=== PATIENT | female | born 1935 | race Caucasian/White ===

== ENCOUNTER 2017-04-02 08:15 | Day surgery (SDC) | payer OTHER, MEDICAID ==
[2017-04-02] MEDS ORDERED: D5 LR 1000 ML 1,000 ML IV ONE (08:18)
[2017-04-02] MEDS ORDERED: DIPRIVAN VIAL 20 ML ONE (09:22)
[2017-04-02 14:00] VITALS: BP 138/61
== END 2017-04-02 10:05 | disposition home or self-care (01) ==
LOC: SURG1 08:15
PROVIDERS: ATTEND Internal Medicine Gastroenterology
PROC: 0DB68ZX Excision of Stomach, Via Natural or Artificial Opening Endoscopic, Diagnostic (ICD-10-PCS; principal; 2017-04-02 16:15)
PROC: 0DJ08ZZ Inspection of Upper Intestinal Tract, Via Natural or Artificial Opening Endoscopic (ICD-10-PCS; principal; 2017-04-02 16:15)
DX: K25.9 Gastric ulcer, unspecified as acute or chronic, without hemorrhage or perforation (principal); R10.13 Epigastric pain; K21.9 Gastro-esophageal reflux disease without esophagitis; K29.60 Other gastritis without bleeding; K44.9 Diaphragmatic hernia without obstruction or gangrene; K20.8 Other esophagitis
CPT/HCPCS: 99100; A4217; J3490; J7120

== ENCOUNTER → 2018-02-12 | Outpatient (CLI) | payer OTHER, MEDICAID ==
[~2018-02-12] MED LIST: NS 100 ML IV 100 ML IV ONE
== END | disposition home or self-care (01) ==
LOC: RAD 11:53
PROVIDERS: ATTEND Internal Medicine
DX: T14.8XXA Other injury of unspecified body region, initial encounter (principal); X58.XXXA Exposure to other specified factors, initial encounter
CPT/HCPCS: A4222

== ENCOUNTER → 2018-02-18 | Outpatient (CLI) | payer OTHER, MEDICAID ==
--- NOTE | 2018-02-18 13:28 | CT ---
Indication: Right lower leg wound infection Exam: CTA aorta and lower extremities with the without contrast. Technique: Axial spiral images were obtained from the lung bases through the feet before and after ad ministration of 100 cc Omnipaque 300. Coronal and sagittal 3D MIP reconstructions were performed of t he aorta and runoff vessels in the lower extremities. Findings: The visualized liver and spleen are grossly unremarkable . The gallbladder as been removed. The commo n duct is mildly dilated proximally and tapers distally with no filling defects. The pancreas and adr enals are normal. The kidneys are normal size and function normally with no hydronephrosis or renal s tones. The uterus has been removed with no adnexal mass or free fluid. The bladder is unremarkable. N o retroperitoneal mass or adenopathy is seen. There is mild to moderate calcified plaque along the abdominal aorta and extending inferiorly with no aneurysm or dissection. There is moderate plaque along the origin of the celiac artery causing moder ate narrowing of the origin in the range of 50-70% with good flow distally . The superior mesenteric artery is well opacified and normal caliber. The left renal artery are well opacified and normal [facility] sher[facility]. There is moderate plaque along the origin of the right renal artery causing 50-70% narrowing wit h good flow distally . There is moderate calcified plaque extending throughout the infrarenal aorta t o the bifurcation with both common iliac, external iliac, and common femoral arteries widely patent a nd normal caliber with no plaque identified. Both profunda and superficial femoral arteries are widely patent with no plaque or narrowing identifi ed. Both popliteal arteries are widely patent and normal caliber with no plaque identified. There is a normal trifurcation bilaterally both the anterior and posterior tibial arteries patent and normal c aliber into the distal foot bilaterally. There is mild attenuation of the peroneal arteries around th e ankle bilaterally. There are postop changes are seen along the medial malleolus on the right . Ther e are old healed fracture of the left pubic ramus and inferior pubic ramus on the left. Impression: [id number] atherosclerotic calcified plaque throughout the aorta with no aneurysm or dissection . Moderate calcified plaque along the origin of the celiac and right renal artery which appears to be c ausing narrowing in the range of 50-70% along the origin of both vessels. Unremarkable common iliac, external iliac, common femoral, superficial femoral, and popliteal arterie s with no plaque or narrowing seen . Unremarkable trifurcation vessels with widely patent anterior and posterior tibial arteries bilateral ly into the distal foot with mild attenuation of the peroneal arteries at the level of the ankle. Status post cholecystectomy and hysterectomy. Old fractures of the left pelvis and postop changes in the right ankle. Reported By:
== END ==
LOC: RAD 09:47
PROVIDERS: ATTEND Internal Medicine
DX: T14.8XXA Other injury of unspecified body region, initial encounter (principal); X58.XXXA Exposure to other specified factors, initial encounter
CPT/HCPCS: 73706; A4222

== ENCOUNTER 2018-07-08 11:14 | Observation (INO) ==
[2018-07-08 11:25] VITALS: BMI 24.3
[2018-07-08] MEDS ORDERED: BENTYL CAP 10 MG PO ONE (11:44)
--- NOTE | 2018-07-08 11:47 | DR.CA ---
HPI Time Seen Time seen: 11:10 PCP Primary Care Physician: JOSE A HPI Comment HPI Comment: CHEST COMPRESSIONS IN PROGRESS AND OXYGEN APPLIED ON THE WAS TO ED. PATIENT IS NOW RESPONSIVE IN ED BUT SLOW IN HER RESPONSE TO QUESTIONS. SHE IS BRADYCARDIAC. HAVE RECENT VISUAL PROBLEM AND IS ON TIMILOL AND OTHER EYE DROP. DENIES FEVER OR DYSURIA. DENIES CHEST PAIN. Complaint Chief Complaint Doctor Comments: UNRESPONSIVE WHILE IN [employer] [place] AT THE [facility]. THERE WAS NO PULSE AND BREATHING WAS AGONAL. Chief Complaint:: [facility] STAFF BRINGS PT. TO ER STATING PT. WAS UNRESPONSIVE WITH NO PULSE WITH AGONAL RESPIRATIONS. PT. WAS IN THE [employer] AT THE DETENTION AND SLUMPED OVER IN THE CHAIR. UPON ARRIVAL TO ER, PT. IS LETHARGIC BUT RESPONDS VERBALLY TO STAFF, NO RECOLLECTION OF PRIOR EVENTS. Reviewed Nurses Notes Review: Yes Source History Provided: Intermediate Mode of arrival Mode of Arrival: Stretcher Timing Onset of Chief Complaint: 07/08/18 Context Onset: At Rest History R/T Cardiac Arrest: Unknown Prehospital Care: Initial Rhythm: Sinus Bradycardia Prehospital: Treatment: CPR Prehospital: Response to Treatment: Sustained Return of Pulse Associated Signs and Symptoms Associated Signs and Symptoms: Other (BRADYCARDIA.) PMH PMH Past Medical History: Yes Past Medical History: Alzheimers, Anemia, Arthritis, CHF, Dementia, Depression, GERD and Hypertension Past Surgical History: Yes Surgical History: Cholecystectomy and Hysterectomy Family History History of Family Medical Conditions: No Social History Does patient currently use any type of tobacco product: No Have you used tobacco products in the last 12 months: No Type of Tobacco Use: None Does any household member use tobacco: No Alcohol Use: None Do you use any recreational Drugs:: No Lives Where: Intermediate infectious screening In the last 2 months have you had wt loss of >10#?: NO Have you had fever, night sweats or hemotysis?: No Have you traveled outside the country in the last 6 months?: No Isolation: Standard ROS Review of Systems Constitutional: Weakness and Fatigue; negative Chills and Fever Eyes: Discharge and Other (DECREASE VISSION BOTH EYES DUE TO GLAUCOMA.) ENTM: No Symptoms Reported Respiratoy: Short of Breath Cardiovascular: No Symptoms Reported Genitourinary: No Symptoms Reported Neurological: Weakness Musculoskeletal: No Symptoms Reported Integumentary: No Symptoms Reported Hematologic/Lymphatic: Easy Bleeding and Easy Bruising Endocrine: No Symptoms Reported Psychiatric: No Symptoms Reported All Other Systems: Reviewed and Negative PE Vitals Vital Signs: Temp Pulse Pulse Resp BP BP BP 07/09/18 18:00 65 19 186/80 07/09/18 17:00 71 14 121/57 07/09/18 16:00 97.8 F 66 17 112/56 07/09/18 15:00 62 16 111/58 07/09/18 14:00 65 14 108/55 07/09/18 13:00 65 14 157/74 07/09/18 12:00 98.2 F 61 15 153/70 07/09/18 11:00 57 L 12 157/70 07/09/18 10:00 54 L 15 153/70 07/09/18 09:00 57 L 12 146/66 07/09/18 08:00 60 11 L 122/58 07/09/18 07:00 97.3 F L 72 18 162/67 07/09/18 06:00 63 12 153/67 07/09/18 05:00 67 13 07/09/18 04:00 98.9 F 60 14 171/71 07/09/18 03:00 60 23 167/72 07/09/18 02:00 59 L 20 164/72 07/09/18 01:00 59 L 16 170/71 07/09/18 00:00 58 L 15 152/67 07/08/18 23:00 58 L 16 175/78 07/08/18 22:00 64 20 144/66 07/08/18 21:00 48 L 20 151/66 07/08/18 20:00 50 L 20 124/60 07/08/18 19:00 97.7 F 57 L 23 144/61 07/08/18 18:00 57 L 22 173/71 07/08/18 17:00 50 L 30 H 139/62 07/08/18 16:00 53 L 27 H 172/73 07/08/18 15:00 98.5 F 52 L 18 148/63 07/08/18 14:30 52 L 22 148/59 07/08/18 14:14 52 L 18 154/67 07/08/18 14:00 53 L 22 155/64 07/08/18 13:30 53 L 23 125/63 07/08/18 13:00 55 L 20 143/59 07/08/18 12:30 50 L 21 135/62 07/08/18 12:15 46 L 22 135/61 07/08/18 12:00 46 L 22 136/59 07/08/18 11:45 46 L 23 134/60 07/08/18 11:30 49 L 20 131/60 07/08/18 11:19 97 F L 46 L 15 118/56 04/02/17 10:00 138/61 09/18/14 21:40 149/69 07/01/14 16:00 119/58 Pulse Ox 07/09/18 18:00 100 07/09/18 17:00 99 07/09/18 16:00 99 07/09/18 15:00 95 07/09/18 14:00 96 07/09/18 13:00 100 07/09/18 12:00 100 07/09/18 11:00 100 07/09/18 10:00 100 07/09/18 09:00 100 07/09/18 08:00 99 07/09/18 07:00 98 07/09/18 06:00 98 07/09/18 05:00 100 07/09/18 04:00 99 07/09/18 03:00 100 07/09/18 02:00 100 07/09/18 01:00 99 07/09/18 00:00 99 07/08/18 23:00 100 07/08/18 22:00 100 07/08/18 21:00 100 07/08/18 20:00 100 07/08/18 19:00 100 07/08/18 18:00 100 07/08/18 17:00 100 07/08/18 16:00 99 07/08/18 15:00 100 07/08/18 14:30 95 07/08/18 14:14 100 07/08/18 14:00 100 07/08/18 13:30 96 07/08/18 13:00 100 07/08/18 12:30 100 07/08/18 12:15 100 07/08/18 12:00 100 07/08/18 11:45 100 07/08/18 11:30 97 07/08/18 11:19 100 04/02/17 10:00 09/18/14 21:40 07/01/14 16:00 General Limitations: Altered Mental Status General Appearance: Alert and In Distress Head Head Exam: Normal Inspection and Atraumatic Eyes Eye exam: PERRL and EOMI; negative Scleral Icterus ENT ENT Exam: Normal Oropharynx, Normal External Ear Exam and TM's Normal Bilaterally Airway Airway: Patent Gag: Normal Neck Neck Exam: Normal Inspection and Trachea Midline; negative Tenderness, Meningismus and Lymphadenopathy Chest Chest Inspection: Normal Inspection and Symmetric Chest Wall Rise Expanded Chest Exam: Other (NONE OF THE ABOVE.) Respiratory Ventilation: Spontaneous Respiratory Exam: Normal Lung Sounds Bilat Respiratory Exam: Bilateral: Rhonchi and Lower: Rhonchi Cardiovascular Cardiovascular Exam: Bradycardia Abdominal Exam Abdominal Exam: Normal Inspection, Normal Bowel Sounds and Soft; negative Tenderness Extremities Extremities Exam: Normal Inspection Back Back Exam: Normal Inspection Psychiatric Psychiatric Exam: Normal Affect and Anxious Skin Skin Exam: Intact MDM Addition Information Additional Information Obtained From: Family Differential Diagnosis Differential Diagnosis: Cardiopulmonary Arrest, Dysrhythmia, Electrolyte Disorder, Myocardial Infarction, Pneumothorax, Pulmonary Embolus and Respiratory Failure ROR Labs Reviewed Laboratory Results Reviewed?: Yes Result Diagrams: 07/09/18 04:10 07/09/18 04:10 Laboratory: WBC 4.6 X10^3/uL (3.6-10.0) 07/09/18 04:10 RBC 4.51 X10^6/uL (3.5-5.4) 07/09/18 04:10 Hgb 13.7 g/dL (12.0-16.0) 07/09/18 04:10 Hct 40.4 % (36.0-47.0) 07/09/18 04:10 MCV 89.6 fL (80.0-100.0) 07/09/18 04:10 MCH 30.5 pg (27.0-34.0) 07/09/18 04:10 MCHC 34.0 g/dL (33.0-35.0) 07/09/18 04:10 RDW 12.9 % (11.6-16.5) 07/09/18 04:10 Plt Count 157 X10^3/uL (150.0-450.0) 07/09/18 04:10 MPV 8.9 fL (7.4-11.0) 07/09/18 04:10 Neut % (Auto) 59.2 % (42.0-75.0) 07/09/18 04:10 Lymph % (Auto) 25.6 % (21.0-51.0) 07/09/18 04:10 [place] % (Auto) 11.0 % (0.0-13.0) 07/09/18 04:10 Eos % (Auto) 3.4 % (0.9-2.9) H 07/09/18 04:10 Baso % (Auto) 0.8 % (0.2-1.0) 07/09/18 04:10 Neut # (Auto) 2.7 x10^3/uL (2.2-4.8) 07/09/18 04:10 Lymph # (Auto) 1.2 X10^3/uL (1.3-2.9) L 07/09/18 04:10 [place] # (Auto) 0.5 x10^3/uL (0.3-0.8) 07/09/18 04:10 Eos # (Auto) 0.2 x10^3/uL (0.0-0.2) 07/09/18 04:10 Baso # (Auto) 0.0 X10^3/uL (0.0-0.1) 07/09/18 04:10 Absolute Nucleated RBC 0.2 /100WBC 07/09/18 04:10 Sodium 143 mmol/L (136-145) 07/09/18 04:10 Corrected Sodium TNP 07/09/18 04:10 Potassium 4.2 mmol/L (3.5-5.1) 07/09/18 04:10 Chloride 110 mmol/L (98-107) H 07/09/18 04:10 Carbon Dioxide 25.1 mmol/L (21-32) 07/09/18 04:10 BUN 17 mg/dL (7-18) 07/09/18 04:10 Creatinine 1.06 mg/dL (0.55-1.02) H 07/09/18 04:10 Est GFR (MDRD) Af Amer > 60 (>60) 07/09/18 04:10 Est GFR (MDRD) Non-Af 53 (>60) L 07/09/18 04:10 Glucose 91 mg/dL (65-99) 07/09/18 04:10 POC Glucose (mg/dL) 89 mg/dL (65-99) 07/08/18 11:14 Calcium 9.6 mg/dL (8.5-10.1) 07/09/18 04:10 Corrected Calcium 10.2 mg/dL (8.5-10.1) H 07/09/18 04:10 Magnesium 2.0 mg/dL (1.7-2.9) 07/09/18 04:10 Total Bilirubin 0.30 mg/dL (0.2-1.0) 07/09/18 04:10 AST 17 Units/L (15-37) 07/09/18 04:10 ALT 23 Units/L (12-78) 07/09/18 04:10 Alkaline Phosphatase 84 Units/L (46-116) 07/09/18 04:10 Creatine Kinase 42 Units/L (26-192) 07/09/18 00:30 CK-MB (CK-2) 1.0 ng/mL (0-4.0) 07/09/18 00:30 CK/CKMB % Calc 2.4 % (<4) 07/09/18 00:30 Troponin I < 0.02 ng/mL (0-1.5) 07/09/18 00:30 Total Protein 7.0 g/dL (6.4-8.2) 07/09/18 04:10 Albumin 3.3 g/dL (3.4-5.0) L 07/09/18 04:10 Globulin 3.7 g/dL (2.5-4.5) 07/09/18 04:10 Albumin/Globulin Ratio 0.9 Ratio (1.1-2.1) L 07/09/18 04:10 Acetone, Semi-Quant Negative (NEGATIVE) 07/09/18 04:10 XRAY XRAY Interpreted by: Radiologist XRAY Findings: REPORT DISCUSS WITH PATIENT. EKG [place]: Normal Rhythm: SB Diagnosis Discharge Problem: Episode of syncope, Bradycardia, Glaucoma
[2018-07-08 12:07] LABS: BASOPHILS % (AUTO) 1.1 % (0.2-1.0); EOSINOPHILS # (AUTO) 0.2 x10^3/uL (0.0-0.2); EOSINOPHILS % (AUTO) 4.4 % (0.9-2.9); HEMATOCRIT 38.3 % (36.0-47.0); HEMOGLOBIN 12.7 g/dL (12.0-16.0); LYMPHOCYTES # (AUTO) 1.1 X10^3/uL (1.3-2.9); LYMPHOCYTES % (AUTO) 25.5 % (21.0-51.0); MEAN CORPUSCULAR HEMOGLOBIN 30.4 pg (27.0-34.0); MEAN CORPUSCULAR HGB CONC 33.2 g/dL (33.0-35.0); MEAN CORPUSCULAR VOLUME 91.7 fL (80.0-100.0); MONOCYTES # (AUTO) 0.4 x10^3/uL (0.3-0.8); MONOCYTES % (AUTO) 9.3 % (0.0-13.0); NEUTROPHILS # (AUTO) 2.6 x10^3/uL (2.2-4.8); NEUTROPHILS % (AUTO) 59.7 % (42.0-75.0); PLATELET COUNT 155 X10^3/uL (150.0-450.0); RED BLOOD COUNT 4.17 X10^6/uL (3.5-5.4); RED CELL DISTRIBUTION WIDTH 13.2 % (11.6-16.5); WHITE BLOOD COUNT 4.3 X10^3/uL (3.6-10.0)
[2018-07-08 12:24] LABS: BLOOD UREA NITROGEN 21 mg/dL (7-18); CALCIUM 9.5 mg/dL (8.5-10.1); CARBON DIOXIDE 28.5 mmol/L (21-32); CHLORIDE 107 mmol/L (98-107); CREATININE 1.33 mg/dL (0.55-1.02); SODIUM 140 mmol/L (136-145); TROPONIN I < 0.02 ng/mL (0-1.5); eGFR NON BLACK RACES 40 (>60)
[2018-07-08 12:28] LABS: ALANINE AMINOTRANSFERASE 26 Units/L (12-78); ALBUMIN 3.5 g/dL (3.4-5.0); ALKALINE PHOSPHATASE 77 Units/L (46-116); ASPARTATE AMINO TRANSFERASE 19 Units/L (15-37); CKMB % 2.2 % (<4); CREATINE KINASE 46 Units/L (26-192)
--- NOTE | 2018-07-08 13:25 | RAD ---
Chest, one view Indication: Shortness of breath Comparison: 12/26/2015 Findings: The heart is stable in size. No focal infiltrate, significant effusion or pneumothorax is i dentified. Moderate-sized hiatal hernia again noted. The imaged osseous structures are unchanged. Impression: No acute cardiopulmonary abnormality or significant interval change. Reported By:
[2018-07-08] MEDS: NS 1000 ML 1,000 ML IV SCH (15:01)
[2018-07-08 19:23] LABS: CKMB % 2.1 % (<4); CREATINE KINASE 52 Units/L (26-192); CREATINE KINASE MB 1.1 ng/mL (0-4.0); TROPONIN I < 0.02 ng/mL (0-1.5)
[2018-07-08] MEDS: MILK OF MAGNESIA PO SCH (20:23)
[2018-07-08] MEDS ORDERED: COLACE CAP 100 MG PO SCH (21:00)
[2018-07-09 01:28] LABS: CKMB % 2.4 % (<4); CREATINE KINASE 42 Units/L (26-192); TROPONIN I < 0.02 ng/mL (0-1.5)
[2018-07-09 04:54] LABS: BASOPHILS % (AUTO) 0.8 % (0.2-1.0); EOSINOPHILS # (AUTO) 0.2 x10^3/uL (0.0-0.2); EOSINOPHILS % (AUTO) 3.4 % (0.9-2.9); HEMATOCRIT 40.4 % (36.0-47.0); HEMOGLOBIN 13.7 g/dL (12.0-16.0); LYMPHOCYTES # (AUTO) 1.2 X10^3/uL (1.3-2.9); LYMPHOCYTES % (AUTO) 25.6 % (21.0-51.0); MEAN CORPUSCULAR HEMOGLOBIN 30.5 pg (27.0-34.0); MEAN CORPUSCULAR VOLUME 89.6 fL (80.0-100.0); MEAN PLATELET VOLUME 8.9 fL (7.4-11.0); MONOCYTES # (AUTO) 0.5 x10^3/uL (0.3-0.8); NEUTROPHILS # (AUTO) 2.7 x10^3/uL (2.2-4.8); NEUTROPHILS % (AUTO) 59.2 % (42.0-75.0); PLATELET COUNT 157 X10^3/uL (150.0-450.0); RED BLOOD COUNT 4.51 X10^6/uL (3.5-5.4); RED CELL DISTRIBUTION WIDTH 12.9 % (11.6-16.5); WHITE BLOOD COUNT 4.6 X10^3/uL (3.6-10.0)
[2018-07-09 05:06] LABS: ALANINE AMINOTRANSFERASE 23 Units/L (12-78); ALBUMIN 3.3 g/dL (3.4-5.0); ALKALINE PHOSPHATASE 84 Units/L (46-116); ASPARTATE AMINO TRANSFERASE 17 Units/L (15-37); BLOOD UREA NITROGEN 17 mg/dL (7-18); CALCIUM 9.6 mg/dL (8.5-10.1); CARBON DIOXIDE 25.1 mmol/L (21-32); CHLORIDE 110 mmol/L (98-107); COR CA(FOR HYPOALB) 10.2 mg/dL (8.5-10.1); CREATININE 1.06 mg/dL (0.55-1.02); SODIUM 143 mmol/L (136-145); eGFR NON BLACK RACES 53 (>60)
[2018-07-09] MEDS: NS 1000 ML 1,000 ML IV SCH (08:46)
[2018-07-09] MEDS: MILK OF MAGNESIA PO SCH (09:00)
[2018-07-09] MEDS ORDERED: KLONOPIN TAB 0.5 MG PO PRN (09:28)
[2018-07-09] MEDS ORDERED: ULTRAM PO PRN (09:28)
[2018-07-09] MEDS ORDERED: PAXIL PO SCH (10:00)
[2018-07-09] MEDS ORDERED: FLONASE NASAL SPRAY ENOSTRIL SCH (10:00)
[2018-07-09] MEDS: PATIENT'S HOME MEDICATION (Carboxymethylcellulose Sodium [Refresh Tears] 1 DROP) EACHEYE SCH ×3 (10:21→16:52)
[2018-07-09] MEDS: PATIENT'S HOME MEDICATION OP SCH ×2 (10:22→12:59)
[2018-07-09] MEDS ORDERED: TYLENOL 500 MG TAB EXTRA STRENGTH PO SCH (14:00)
[2018-07-09] MEDS ORDERED: ALPHAGAN 0.2% OPHTH SOLN OP SCH (14:00)
--- NOTE | 2018-07-09 14:39 | DR.H&P ---
H&P - History & Physical for Day of: H&P Date: 07/08/18 - Chief Complaint Chief Complaint: syncope, unresponsive - History of Present Illness History of Present Illness: 83 WF ER ADMISSION AFTER PRESENTING TO THE ER FROM [facility] UNRESPONSIVE. NURSING STAFF REPORTS PT WAS IN [employer] CHAIR AND SLUMPED OVER, TURNED BLUE IN FACE AND WAS UNRESPONSIVE. PT WAS NOTED TO BE BRADYCARDIC ON ARRIVAL TO ER. PT HAS NO HX OF HEART DISEASE. PT WAS STARTED ON DORZOLAMIDE TIMOLOL EYE DROPS ON 911 FOR GLAUCOMA. PT'S FAMILY [facility] OPTHALMOLOGIST DR NEGRETE CAUTIONED PT DROPS MAY CAUSE WEAKNESS, DIZZINESS, DROP IN BP AND HEART RATE. PT STABLILIZED IN ER AND ADMITTED TO ICU FOR CARDIAC MONITORING, R/O AMI - Past Medical History Past Medical History: Hypertension, Alzheimers, Dementia, Depression, Anemia, GERD, Arthritis, CHF Additional Medical History: Osteoporosis, LBP, GLAUCOMA - Past Surgical History Surgical History: Cholecystectomy, Hysterectomy Additional Surgical History: ORIF (R) Ankle - Social History Does patient currently use any type of tobacco product: No Have you used tobacco products in the last 12 months: No Type of Tobacco Use: None Does any household member use tobacco: No Alcohol Use: None Drug Use: None - Medications Home Medications: ciprofloxacin Allergy (Verified 07/08/18 11:26) codeine Allergy (Verified 07/08/18 11:26) Penicillins Allergy (Verified 07/08/18 11:26) CONTINUE taking the following medications acetaminophen [Tylenol Extra Strength] 1 tab PO TID 07/08/18 [History] acetazolamide 1 tab PO QID 07/08/18 [History] brimonidine 1 drp OPHTHALMIC (EYE) TID 07/08/18 [History] calcium carbonate-vitamin D3 [Calcium 500 With D] 1 tab PO BID 07/08/18 [History ] cetirizine 1 tab PO DAILY 07/08/18 [History] diclofenac sodium [Voltaren] 1 applic TOPICAL QID 07/08/18 [History] divalproex [Depakote ER] 1 tab PO HS 07/08/18 [History] docusate sodium [Colace] 1 cap PO DAILY 07/08/18 [History] dorzolamide-timolol 1 drp OPHTHALMIC (EYE) TID 07/08/18 [History] latanoprost 1 drp OPHTHALMIC (EYE) HS 07/08/18 [History] magnesium hydroxide [Milk of Magnesia] 30 ml PO HS 07/08/18 [History] meclizine 1 tab PO Q6HR PRN 07/08/18 [History] menthol [Cough Drops] 1 tab PO Q4HR PRN 07/08/18 [History] montelukast [Singulair] 1 tab PO DAILY 07/08/18 [History] paroxetine HCl [Paxil] 1 tab PO DAILY 07/08/18 [History] polyethylene glycol 3350 [Miralax] 17 g/day PO DAILY 07/08/18 [History] potassium chloride 1 cap PO DAILY 07/08/18 [History] simethicone 2 tab PO QID 07/08/18 [History] tramadol 1 tab PO Q4HR PRN 07/08/18 [History] - Review of Systems Constitutional: Other (LETHARGIC ON ARRIVAL TO ER) Eyes: Vision Change (CHRONIC RELATED TO GLAUCOMA WORSENING) ENT: No Symptoms Reported Respiratory: No Symptoms Reported Cardiovascular: No Symptoms Reported Gastrointestinal: No Symptoms Reported Genitourinary: No Symptoms Reported Musculoskeletal: No Symptoms Reported Skin: No Symptoms Reported Neurological: Weakness - Physical Exam Vital Signs: Temperature 98.2 F Pulse Rate [Apical] 65 Pulse Rate 46 Respiratory Rate 14 Blood Pressure [Right Arm] 108/55 Blood Pressure [Left Arm] 164/72 Blood Pressure 118/56 O2 Sat by Pulse Oximetry 96 Oriented: Person Eyes: Blurred Vision Ear: Normal Nose: Normal Throat: Normal Respiratory: RLL Diminished, LLL Diminished Cardiovascular: Bradycardia. negative: Murmur, Edema : Normal Auscultation: Bowel Sounds: Normal Palpation: Normal Tenderness: Normal Skin: Normal Musculoskeletal: Normal Psychiatric: Normal Speech Pattern: Appropriate, Delayed - Assessment/Plan (1) Episode of syncope Qualifiers: Syncope type: unspecified Qualified Code(s): R55 - Syncope and collapse Status: Acute Plan: ADMIT, ICU CONTINUOUS CARDIAC MONITORING, SUPPLEMENTAL O2. SERIAL CE AND EKG'S. BP MONITORING, VERIFY HOME MEDS. HOLD BB OR CBC, RATE CONTROL MEDICATION. GENTLE IV HYDRATION (2) Bradycardia Status: Acute (3) GERD (gastroesophageal reflux disease) Status: Chronic (4) SKYLA (generalized anxiety disorder) Status: Chronic (5) Depression Status: Chronic (6) Glaucoma Qualifiers: Glaucoma type: unspecified Laterality: bilateral Qualified Code(s): H40.9 - Unspecified glaucoma Status: Acute - Allergies Allergies/Adverse Reactions: Allergies Allergy/AdvReac Type Severity Reaction Status Date / Time ciprofloxacin Allergy Verified 07/08/18 11:26 codeine Allergy Verified 07/08/18 11:26 Penicillins Allergy Verified 07/08/18 11:26
--- NOTE | 2018-07-09 14:49 | PCM.DCPLAN ---
Discharge Summary - Admission Date Date of Admission: 07/08/18 - Discharge Date Discharge Date: 07/09/18 - Admission Diagnoses (1) Episode of syncope Status: Acute (2) Bradycardia Status: Acute (3) GERD (gastroesophageal reflux disease) Status: Chronic (4) SKYLA (generalized anxiety disorder) Status: Chronic (5) Depression Status: Chronic (6) Glaucoma Status: Acute - Discharge Diagnoses Discharge Diagnosis: BRADYCARDIA DUE TO BB, RESOLVED SKYLA GERD OA MDD SKYLA DEMENTIA GLAUCOMA - Discharge Medications Discharge Medications: Home Medication List acetaminophen [Tylenol Extra Strength] 1 tab PO TID 07/08/18 [History] acetazolamide 1 tab PO QID 07/08/18 [History] brimonidine 1 drp OPHTHALMIC (EYE) TID 07/08/18 [History] calcium carbonate-vitamin D3 [Calcium 500 With D] 1 tab PO BID 07/08/18 [History ] cetirizine 1 tab PO DAILY 07/08/18 [History] diclofenac sodium [Voltaren] 1 applic TOPICAL QID 07/08/18 [History] divalproex [Depakote ER] 1 tab PO HS 07/08/18 [History] docusate sodium [Colace] 1 cap PO DAILY 07/08/18 [History] dorzolamide-timolol 1 drp OPHTHALMIC (EYE) TID 07/08/18 [History] latanoprost 1 drp OPHTHALMIC (EYE) HS 07/08/18 [History] magnesium hydroxide [Milk of Magnesia] 30 ml PO HS 07/08/18 [History] meclizine 1 tab PO Q6HR PRN 07/08/18 [History] menthol [Cough Drops] 1 tab PO Q4HR PRN 07/08/18 [History] montelukast [Singulair] 1 tab PO DAILY 07/08/18 [History] paroxetine HCl [Paxil] 1 tab PO DAILY 07/08/18 [History] polyethylene glycol 3350 [Miralax] 17 g/day PO DAILY 07/08/18 [History] potassium chloride 1 cap PO DAILY 07/08/18 [History] simethicone 2 tab PO QID 07/08/18 [History] tramadol 1 tab PO Q4HR PRN 07/08/18 [History] Prescriptions: - Hospital Course Vital Signs: Temperature 98.2 F Pulse Rate [Apical] 65 Pulse Rate 46 Respiratory Rate 14 Blood Pressure [Right Arm] 108/55 Blood Pressure [Left Arm] 164/72 Blood Pressure 118/56 O2 Sat by Pulse Oximetry 96 Latest Lab Results: Laboratory Last Values WBC 4.6 X10^3/uL (3.6-10.0) 07/09/18 04:10 RBC 4.51 X10^6/uL (3.5-5.4) 07/09/18 04:10 Hgb 13.7 g/dL (12.0-16.0) 07/09/18 04:10 Hct 40.4 % (36.0-47.0) 07/09/18 04:10 MCV 89.6 fL (80.0-100.0) 07/09/18 04:10 MCH 30.5 pg (27.0-34.0) 07/09/18 04:10 MCHC 34.0 g/dL (33.0-35.0) 07/09/18 04:10 RDW 12.9 % (11.6-16.5) 07/09/18 04:10 Plt Count 157 X10^3/uL (150.0-450.0) 07/09/18 04:10 MPV 8.9 fL (7.4-11.0) 07/09/18 04:10 Neut % (Auto) 59.2 % (42.0-75.0) 07/09/18 04:10 Lymph % (Auto) 25.6 % (21.0-51.0) 07/09/18 04:10 [place] % (Auto) 11.0 % (0.0-13.0) 07/09/18 04:10 Eos % (Auto) 3.4 % (0.9-2.9) H 07/09/18 04:10 Baso % (Auto) 0.8 % (0.2-1.0) 07/09/18 04:10 Neut # (Auto) 2.7 x10^3/uL (2.2-4.8) 07/09/18 04:10 Lymph # (Auto) 1.2 X10^3/uL (1.3-2.9) L 07/09/18 04:10 [place] # (Auto) 0.5 x10^3/uL (0.3-0.8) 07/09/18 04:10 Eos # (Auto) 0.2 x10^3/uL (0.0-0.2) 07/09/18 04:10 Baso # (Auto) 0.0 X10^3/uL (0.0-0.1) 07/09/18 04:10 Absolute Nucleated RBC 0.2 /100WBC 07/09/18 04:10 Sodium 143 mmol/L (136-145) 07/09/18 04:10 Corrected Sodium TNP 07/09/18 04:10 Potassium 4.2 mmol/L (3.5-5.1) 07/09/18 04:10 Chloride 110 mmol/L (98-107) H 07/09/18 04:10 Carbon Dioxide 25.1 mmol/L (21-32) 07/09/18 04:10 BUN 17 mg/dL (7-18) 07/09/18 04:10 Creatinine 1.06 mg/dL (0.55-1.02) H 07/09/18 04:10 Est GFR (MDRD) Af Amer > 60 (>60) 07/09/18 04:10 Est GFR (MDRD) Non-Af 53 (>60) L 07/09/18 04:10 Glucose 91 mg/dL (65-99) 07/09/18 04:10 POC Glucose (mg/dL) 89 mg/dL (65-99) 07/08/18 11:14 Calcium 9.6 mg/dL (8.5-10.1) 07/09/18 04:10 Corrected Calcium 10.2 mg/dL (8.5-10.1) H 07/09/18 04:10 Magnesium 2.0 mg/dL (1.7-2.9) 07/09/18 04:10 Total Bilirubin 0.30 mg/dL (0.2-1.0) 07/09/18 04:10 AST 17 Units/L (15-37) 07/09/18 04:10 ALT 23 Units/L (12-78) 07/09/18 04:10 Alkaline Phosphatase 84 Units/L (46-116) 07/09/18 04:10 Creatine Kinase 42 Units/L (26-192) 07/09/18 00:30 CK-MB (CK-2) 1.0 ng/mL (0-4.0) 07/09/18 00:30 CK/CKMB % Calc 2.4 % (<4) 07/09/18 00:30 Troponin I < 0.02 ng/mL (0-1.5) 07/09/18 00:30 Total Protein 7.0 g/dL (6.4-8.2) 07/09/18 04:10 Albumin 3.3 g/dL (3.4-5.0) L 07/09/18 04:10 Globulin 3.7 g/dL (2.5-4.5) 07/09/18 04:10 Albumin/Globulin Ratio 0.9 Ratio (1.1-2.1) L 07/09/18 04:10 Acetone, Semi-Quant Negative (NEGATIVE) 07/09/18 04:10 Hospital Course: 83 WF ER ADMISSION AFTER PRESENTING TO THE ER FROM [facility] UNRESPONSIVE. NURSING STAFF REPORTS PT WAS IN [employer] CHAIR AND SLUMPED OVER , TURNED BLUE IN FACE AND WAS UNRESPONSIVE. PT WAS NOTED TO BE BRADYCARDIC ON ARRIVAL TO ER. PT HAS NO HX OF HEART DISEASE. PT WAS STARTED ON DORZOLAMIDE TIMOLOL EYE DROPS ON FOR GLAUCOMA. PT'S FAMILY STATES OPTHALMOLOGIST DR NEGRETE CAUTIONED PT DROPS MAY CAUSE WEAKNESS, DIZZINESS, DROP IN BP AND HEART RATE. PT STABLILIZED IN ER AND ADMITTED TO ICU FOR CARDIAC MONITORING, R/O AMI PT HAD SERIAL CE, NORMAL WITHOUT CONCERN FOR AMI. PT HEART RATE IMPROVED TO 60' S 70'S WHILE HOLDING DORZOLAMDIE TIMOLOL, BB EYE DROPS STARTED ON 07/06 FOR GLAUCOMA MANAGEMENT. PT AWAKE AND ALERT AND ORIENTED THIS AM. DENIES ANY PAIN CP SOB OR DIZZINESS. PT DOES REPORT VISION IMPAIRMENT WHICH HAS WORSENED DUE TO INCREASE PRESSURES FROM GLAUCOMA, SHE IS UNDER THE CARE OF DR MORALEZ AND DR RODRÍGUEZ. PT ATE BREAKFAST WITHOUT NAUSEA AND HAD BEEN AMBULATORY TO RESTROOM WITH ASSISTANCE WITHOUT DISTRESS. PT IS DNR, DISCUSSED OPTIONS FOR AGGRESSIVE CARDIAC EVALUATION, PT'S FAMILY AND PT AGREED TO D/C TO LONG TERM HOLDING EYE DROPS AND MONITORING HEART RATE AND BP. PT TO SEE DR MORALEZ SCHEDULED AND FOLLOW UP WITH DR NARANJO. - Discharge Plan Disposition: XFER SNF Condition: Stable - Follow ups/Referrals Follow ups/Referrals: Williams Naranjo [Primary Care Provider] - 1 WEEK - Instructions Additional Instructions: CONTINUE WITH 24 HR TELEMETRY X 1 DAY HOLD ANTIHISTAMINES DUE TO GLAUCOMA UNTIL ORDERED TO RESTART, MAY CONTINUE NASAL SPRAY SEE DR MORALEZ FOR RECHECK ON GLAUCOMA D/C DORZOLAMIDE EYE DROPS
[2018-07-09] MEDS ORDERED: TIMOPTIC 0.5% EYE DROPS EACHEYE SCH (17:00)
[2018-07-09] MEDS ORDERED: TRUSOPT PLUS (OPHTH) EACHEYE SCH (17:00)
[2018-07-09 19:28] VITALS: BP 186/80
[2018-07-09] MEDS ORDERED: PEPCID TAB 20 MG PO SCH (21:00)
[2018-07-09] MEDS ORDERED: DIAMOX PO SCH (21:00)
[2018-07-09] MEDS ORDERED: [UNRECOGNIZED DRUG - OTHER] PO SCH (21:00)
[2018-07-09] MEDS ORDERED: DEPAKOTE ER PO SCH (21:00)
[2018-07-09] MEDS ORDERED: CALCIUM CARBONATE VITAMIN D3 PO SCH (21:00)
[2018-07-09] MEDS ORDERED: OSCAL+D or CALTRATE+D PO SCH (21:00)
[2018-07-10] MEDS ORDERED: MIRALAX POWDER (255 GRAMS BTL) PO SCH (09:00)
== END 2018-07-09 19:00 ==
LOC: ICU 11:14 → ER 11:14 → ICU 14:39
PROVIDERS: ADMIT Internal Medicine; ATTEND Internal Medicine
DX: R40.4 Transient alteration of awareness; F32.89 Other specified depressive episodes; H40.9 Unspecified glaucoma; R55 Syncope and collapse; R00.1 Bradycardia, unspecified; R94.4 Abnormal results of kidney function studies; R26.89 Other abnormalities of gait and mobility; F41.8 Other specified anxiety disorders
CPT/HCPCS: 36415; 71010; 71045; 80053; 82009; 82550; 82553; 83735; 84484; 85025; 93005; 93010; 96365; 97163; 97166; 99284; A4222; G0378; J7030

== ENCOUNTER 2018-12-27 19:12 | Inpatient (IN) ==
[2018-12-27] MEDS: NS 1000 ML 1,000 ML IV SCH (20:02)
[2018-12-27 20:04] LABS: ABG HCO3 23.8 mmol/L (22-26)
[2018-12-27 20:17] LABS: BILIRUBIN,URINE NEGATIVE (NEGATIVE); BLOOD/HEMOGLOBIN,URINE 1+ (NEGATIVE); GLUCOSE, URINE NEGATIVE (NEGATIVE); KETONES,URINE NEGATIVE (NEGATIVE); LEUKOCYTE ESTERASE ,URINE 1+ (NEGATIVE); NITRITES,URINE NEGATIVE (NEGATIVE); PROTEIN,URINE 3+ (NEGATIVE); UROBILINOGEN,URINE NORMAL (NORMAL)
[2018-12-27 20:21] LABS: BLOOD UREA NITROGEN 49 mg/dL (7-18); CALCIUM 10.9 mg/dL (8.5-10.1); CHLORIDE 110 mmol/L (98-107); COR NA(FOR HYPERGLY) 148 mmol/L (136-145); SODIUM 146 mmol/L (136-145); eGFR NON BLACK RACES 50 (>60)
[2018-12-27 20:29] LABS: APPEARANCE,URINE SLIGHTLY HAZY (CLEAR); COLOR,URINE YELLOW (YELLOW)
--- NOTE | 2018-12-27 20:29 | RAD ---
Chest, one view Indication: Altered mental status Comparison: 07/08/2018 Findings: The heart is stable in size. There are new patchy airspace opacities within the mid right lung and right lung base. The remainder of the lungs are grossly clear. No significant pleural effusion or pneumothorax. Impression: New patchy right-sided airspace disease as above, concerning for pneumonia. Clinical correlation and continued radiographic follow-up to resolution recommended. Reported By:
[2018-12-27 20:30] LABS: AMORPHOUS SEDIMENT,UR 1+ /HPF (NEGATIVE); BACTERIA,URINE 2+ /HPF (NEGATIVE); RBC,URINE 0-2 /HPF (NONE SEEN); SQUAMOUS EPITHELIAL CELL,UR RARE /HPF (NEGATIVE)
[2018-12-27 20:31] LABS: BASOPHILS % (AUTO) 0.4 % (0.2-1.0); HEMOGLOBIN 13.7 g/dL (12.0-16.0); LYMPHOCYTES # (AUTO) 0.4 X10^3/uL (1.3-2.9); LYMPHOCYTES % (AUTO) 3.3 % (21.0-51.0); MEAN CORPUSCULAR HEMOGLOBIN 29.9 pg (27.0-34.0); MEAN CORPUSCULAR HGB CONC 33.4 g/dL (33.0-35.0); MEAN CORPUSCULAR VOLUME 89.5 fL (80.0-100.0); MONOCYTES # (AUTO) 1.3 x10^3/uL (0.3-0.8); MONOCYTES % (AUTO) 10.1 % (0.0-13.0); NEUTROPHILS # (AUTO) 11.4 x10^3/uL (2.2-4.8); NEUTROPHILS % (AUTO) 86.2 % (42.0-75.0); PLATELET COUNT 260 X10^3/uL (150.0-450.0); RED BLOOD COUNT 4.58 X10^6/uL (3.5-5.4); RED CELL DISTRIBUTION WIDTH 13.7 % (11.6-16.5); WHITE BLOOD COUNT 13.3 X10^3/uL (3.6-10.0)
--- NOTE | 2018-12-27 20:45 | DR.AMS ---
HPI Time Seen Time Seen by Provider: 12/27/18 19:37 PCP Primary Care Physician: Complaint Chief Complaint:: TOCC - ANNITA CALLED REPORT STATES, "PATIENT HAS RIGHT SIDED WEAKNESS, ALTERED MENTAL STATUS, AND HAS BEEN INCONTINENT SINCE LUNCH TIME TODAY. PATIENT IS A DNR. " Source History Provided: Longterm Mode of Arrival Mode of Arrival: Stretcher Timing Onset of Chief Complaint: 12/27/18 PMH PMH Past Medical History: Yes Past Medical History: Alzheimers, Anemia, Arthritis, CHF, Dementia, Depression, GERD and Hypertension Past Medical History Comment: BLIND O/S 1 YR AGO Past Surgical History: Yes Surgical History: Cholecystectomy and Hysterectomy Family History History of Family Medical Conditions: No Social History Does patient currently use any type of tobacco product: No Have you used tobacco products in the last 12 months: No Type of Tobacco Use: None Does any household member use tobacco: No Alcohol Use: None Do you use any recreational Drugs:: No Lives With: Other Lives Where: Longterm infectious screening Have you traveled outside the country in the last 6 months?: No Isolation: Standard PE Vitals Vital Signs: Temp Pulse Resp BP BP BP Pulse Ox 12/27/18 19:25 100.4 F H 83 20 137/64 93 L 07/09/18 18:00 186/80 186/80 07/09/18 02:00 164/72 General Limitations: No Limitations, Altered Mental Status and Physical Limitation Head Head Exam: Normal Inspection, Atraumatic and Normocephalic Eyes Eye exam: Mydrasis Pupils: Regular, Round: Bilateral ENT ENT Exam: Normal Exam, Normal Oropharynx and Normal External Ear Exam External Ear Exam: Normal External Inspection TM/Canal Exam: Bilateral: Normal Nose Exam: Normal Nose Exam Mouth Exam: Normal Inspection Throat Exam: Normal Inspection Neck Neck Exam: Normal Inspection and Full ROM Chest Chest Inspection: Normal Inspection and Symmetric Chest Wall Rise Respiratory Respiratory Exam: Normal Lung Sounds Bilat Cardiovascular Cardiovascular Exam: Regular Rate and Normal Rhythm Abdominal Exam Abdominal Exam: Normal Inspection and Soft Abdominal Tenderness: RUQ and RLQ Extremities Extremities Exam: Normal Inspection and Full ROM Back Back Exam: Normal Inspection and Full ROM Skin Skin Exam: Warm, Dry, Intact and Normal Color COURSE Treatment Treatment: NS Consultation Called: 22:30 Consultation Comments: Dr. Rodriguez agreed to admit for further evaluation and treatment ROR Labs Reviewed Laboratory Results Reviewed?: Yes Result Diagrams: 12/27/18 20:25 12/27/18 20:01 Laboratory: WBC 13.3 X10^3/uL (3.6-10.0) H 12/27/18 20: RBC 4.58 X10^6/uL (3.5-5.4) 12/27/18 20:25 Hgb 13.7 g/dL (12.0-16.0) 12/27/18 20: Hct 41.0 % (36.0-47.0) 12/27/18 20: MCV 89.5 fL (80.0-100.0) 12/27/18 20: MCH 29.9 pg (27.0-34.0) 12/27/18 20: MCHC 33.4 g/dL (33.0-35.0) 12/27/18 20: RDW 13.7 % (11.6-16.5) 12/27/18 20: Plt Count 260 X10^3/uL (150.0-450.0) 12/27/18 20: MPV 8.0 fL (7.4-11.0) 12/27/18 20:25 Neut % (Auto) 86.2 % (42.0-75.0) H 12/27/18 20: Lymph % (Auto) 3.3 % (21.0-51.0) L 12/27/18 20:25 [place] % (Auto) 10.1 % (0.0-13.0) 12/27/18 20: Eos % (Auto) 0.0 % (0.9-2.9) L 12/27/18 20: Baso % (Auto) 0.4 % (0.2-1.0) 12/27/18 20:25 Neut # (Auto) 11.4 x10^3/uL (2.2-4.8) H 12/27/18 20:25 Lymph # (Auto) 0.4 X10^3/uL (1.3-2.9) L 12/27/18 20:25 [place] # (Auto) 1.3 x10^3/uL (0.3-0.8) H 12/27/18 20:25 Eos # (Auto) 0.0 x10^3/uL (0.0-0.2) 12/27/18 20:25 Baso # (Auto) 0.0 X10^3/uL (0.0-0.1) 12/27/18 20:25 Absolute Nucleated RBC 0.1 /100WBC 12/27/18 20:25 Sample Site Rb 12/27/18 19:58 ABG pH 7.440 (7.35-7.45) 12/27/18 19:58 ABG pCO2 35.0 mmHg (35.0-45.0) 12/27/18 19:58 ABG pO2 63.0 mmHg (80.0-100.0) L 12/27/18 19:58 ABG HCO3 23.8 mmol/L (22-26) 12/27/18 19:58 ABG O2 Saturation 93.0 % (90-100) 12/27/18 19:58 ABG Base Excess 0.0 mmol/L (-2.0-2.0) 12/27/18 19:58 Doug Test N/a 12/27/18 19:58 A-a Gradient 93.0 mmHg 12/27/18 19:58 FiO2 28.0 12/27/18 19:58 Blood Gas Comments [place] well ae 12/27/18 19:58 Sodium 146 mmol/L (136-145) H 12/27/18 20:01 Corrected Sodium 148 mmol/L (136-145) H 12/27/18 20:01 Potassium 3.5 mmol/L (3.5-5.1) 12/27/18 20:01 Chloride 110 mmol/L (98-107) H 12/27/18 20:01 Carbon Dioxide 23.0 mmol/L (21-32) 12/27/18 20:01 BUN 49 mg/dL (7-18) H 12/27/18 20:01 Creatinine 1.10 mg/dL (0.55-1.02) H 12/27/18 20:01 Est GFR (MDRD) Af Amer > 60 (>60) 12/27/18 20:01 Est GFR (MDRD) Non-Af 50 (>60) L 12/27/18 20:01 Glucose 171 mg/dL (65-99) H 12/27/18 20:01 Calcium 10.9 mg/dL (8.5-10.1) H 12/27/18 20:01 Specimen Type Catherized urine 12/27/18 20:06 Urine Color Yellow (YELLOW) 12/27/18 20:06 Urine Appearance Slightly hazy (CLEAR) 12/27/18 20:06 Urine pH 6.0 (5.0 - 8.0) 12/27/18 20:06 Ur Specific [place] 1.010 (1.000-1.030) 12/27/18 20:06 Urine Protein 3+ (NEGATIVE) 12/27/18 20:06 Urine Glucose (UA) Negative (NEGATIVE) 12/27/18 20:06 Urine Ketones Negative (NEGATIVE) 12/27/18 20:06 Urine Occult Blood 1+ (NEGATIVE) 12/27/18 20:06 Urine Nitrite Negative (NEGATIVE) 12/27/18 20:06 Urine Bilirubin Negative (NEGATIVE) 12/27/18 20:06 Urine Urobilinogen Normal (NORMAL) 12/27/18 20:06 Ur Leukocyte Esterase 1+ (NEGATIVE) 12/27/18 20:06 Urine RBC 0-2 /HPF (NONE SEEN) 12/27/18 20:06 Urine WBC 0-2 /HPF (NONE SEEN) 12/27/18 20:06 Ur Squamous Epith Cells Rare /HPF (NEGATIVE) 12/27/18 20:06 Amorphous Sediment 1+ /HPF (NEGATIVE) 12/27/18 20:06 Urine Bacteria 2+ /HPF (NEGATIVE) 12/27/18 20:06 Ur Culture Indicated? No/not indicated 12/27/18 20:06 Other Results Comments: In comparison to prior examination dated 11/02/18, paranasal sinus disease has developed with air fluid levels in the maxillary and sphenoid sinuses and central high attenuation material raising the question of fungal infection, ENT consultation may be beneficial. Brain parenchymal appearances are similar without evidence of mass, hydrocephalus or recent ischemic change. Impression: Significant paranasal sinus disease with air fluid levels in the maxillary and sphenoid sinuses and dense opacification within the ethmoid sinuses extending into the frontal sinuses with central high attenuation raising the question of fungal disease, ENT consultation may be beneficial. No acute intraparenchymal abnormality idientifed. If symptoms persist and MRI would change clinical management, it may be pursued. Chest: The heart is stable in size. There are new patchy airspace opacities within the mid right lung and ri ght lung base. The remainder of the lungs are grossly clear. No significant pleural effusion or pneumothorax. Impression: New patchy right sided airspace disease as above, concerning for pneumonia. Clinical correlation and continued radiographic follow-up to resolution is recommended. XRAY XRAY Interpreted by: Radiologist Procedures Procedure Comments Procedures: See orders
--- NOTE | 2018-12-27 21:11 | CT ---
HISTORY: Altered mental status Technique: Multiple axial images of the brain were obtained from the skull base to the vertex without administration of IV contrast. Findings: In comparison to prior examination dated 11/02/2018, paranasal sinus disease has developed with air-fluid levels in the maxillary and sphenoid sinuses and central high attenuation material raising the question of fungal infection. ENT consultation may be beneficial. Brain parenchymal appearances are similar without evidence of mass, hydrocephalus or recent ischemic change. IMPRESSION: Significant paranasal sinus disease with air-fluid levels in the maxillary and sphenoid sinuses and dense opacification within the ethmoid sinuses extending into the frontal sinuses with central high attenuation raising the question of fungal disease. ENT consultation may be beneficial. No acute intraparenchymal abnormality identified. If symptoms persist and MRI would change clinical management, it may be pursued. Reported By:
[2018-12-27] MEDS ORDERED: TYGACIL 50 MG VIAL 100 MG in NS 100 ML IV 100 ML IV ONE (22:44)
[2018-12-27] MEDS ORDERED: SALINE 3% 15 ML NEB TX ONE (22:56)
[2018-12-27] MEDS ORDERED: SALINE 3% 15 ML NEB TX NEB ONE (23:00)
[2018-12-27] MEDS ORDERED: NS 1000 ML 1,000 ML IV SCH (23:00)
[2018-12-27] MEDS ORDERED: NS 1/2 1000 ML IV 1,000 ML IV SCH (23:00)
[2018-12-28] MEDS: NS 1000 ML 1,000 ML IV SCH (03:41)
[2018-12-28] MEDS ORDERED: TYGACIL 50 MG VIAL IV ONE (05:09)
[2018-12-28] MEDS ORDERED: NS 100 ML IV 100 ML IV ONE (05:09)
[2018-12-28 05:49] LABS: BASOPHILS # (AUTO) 0.1 X10^3/uL (0.0-0.1); BASOPHILS % (AUTO) 0.5 % (0.2-1.0); HEMATOCRIT 40.6 % (36.0-47.0); HEMOGLOBIN 13.4 g/dL (12.0-16.0); LYMPHOCYTES # (AUTO) 0.5 X10^3/uL (1.3-2.9); LYMPHOCYTES % (AUTO) 4.2 % (21.0-51.0); MEAN CORPUSCULAR HEMOGLOBIN 30.2 pg (27.0-34.0); MEAN CORPUSCULAR VOLUME 91.3 fL (80.0-100.0); MEAN PLATELET VOLUME 8.1 fL (7.4-11.0); MONOCYTES # (AUTO) 1.4 x10^3/uL (0.3-0.8); MONOCYTES % (AUTO) 11.2 % (0.0-13.0); NEUTROPHILS # (AUTO) 10.6 x10^3/uL (2.2-4.8); NEUTROPHILS % (AUTO) 84.1 % (42.0-75.0); PLATELET COUNT 253 X10^3/uL (150.0-450.0); RED BLOOD COUNT 4.45 X10^6/uL (3.5-5.4); RED CELL DISTRIBUTION WIDTH 13.7 % (11.6-16.5); WHITE BLOOD COUNT 12.6 X10^3/uL (3.6-10.0)
[2018-12-28] MEDS ORDERED: NS 1/2 1000 ML IV 1,000 ML IV ONE (05:49)
[2018-12-28 06:01] LABS: ALANINE AMINOTRANSFERASE 40 Units/L (12-78); ALBUMIN 2.5 g/dL (3.4-5.0); ALKALINE PHOSPHATASE 229 Units/L (46-116); ASPARTATE AMINO TRANSFERASE 21 Units/L (15-37); BLOOD UREA NITROGEN 39 mg/dL (7-18); CALCIUM 10.4 mg/dL (8.5-10.1); CARBON DIOXIDE 24.9 mmol/L (21-32); COR CA(FOR HYPOALB) 11.6 mg/dL (8.5-10.1); COR NA(FOR HYPERGLY) 152 mmol/L (136-145); CREATININE 0.99 mg/dL (0.55-1.02); TOTAL PROTEIN 7.3 g/dL (6.4-8.2); eGFR NON BLACK RACES 57 (>60)
[2018-12-28 06:04] LABS: CHLORIDE 114 mmol/L (98-107)
[2018-12-28 06:06] LABS: SODIUM 151 mmol/L (136-145)
[2018-12-28 06:27] VITALS: BMI 20.8
--- NOTE | 2018-12-28 06:46 | RAD ---
HISTORY: Follow-up pneumonia Study: Chest AP portable Comparison: 12/27/2018 Findings: The heart is within normal limits in size. The yayo are within normal limits. The lungs are well inflated. Infiltrate is present in the right upper lobe concerning for pneumonia. It is not significantly changed from the prior examination. There are some interstitial lung changes in the lung bases bilaterally. No pleural effusions are identified. The bony thorax is unremarkable. There is a hiatal hernia present. IMPRESSION: Right upper lobe infiltrate unchanged Bibasilar interstitial lung changes Hiatal hernia Reported By:
[2018-12-28] MEDS ORDERED: MAGNESIUM HYDROXIDE PO PRN (08:24)
[2018-12-28] MEDS ORDERED: ANTIVERT TAB 25 MG PO PRN (08:24)
[2018-12-28] MEDS ORDERED: ULTRAM PO PRN (08:24)
[2018-12-28] MEDS: DUONEB 0.5 MG/3 MG NEB SCH ×4 (08:30→20:50)
[2018-12-28] MEDS ORDERED: PATIENT'S HOME MEDICATION (Carboxymethylcellulose Sodium [Refresh Tears] 1 DROP) OP SCH (08:30)
[2018-12-28] MEDS ORDERED: [UNRECOGNIZED DRUG - OTHER] PO SCH (09:00)
[2018-12-28] MEDS ORDERED: VOLTAREN 1 % GEL MULTI DOSE TUBE TOP PRN (09:00)
[2018-12-28] MEDS ORDERED: PATIENT'S HOME MEDICATION (Biotin [Biotin] 1 MG) PO SCH (09:00)
[2018-12-28] MEDS: ROBITUSSIN DM PO SCH ×4 (09:28→21:32)
[2018-12-28] MEDS: MICRO K EXTEN CAP 10 MEQ PO SCH (09:28)
[2018-12-28] MEDS: MYLICON TAB 80 MG CHEW PO SCH ×4 (09:28→21:30)
[2018-12-28] MEDS: DIAMOX PO SCH ×2 (09:29→21:30)
[2018-12-28] MEDS: PEPCID TAB 20 MG PO SCH ×2 (09:29→21:30)
[2018-12-28] MEDS: SINGULAIR TAB 10 MG PO SCH (09:29)
[2018-12-28] MEDS: KLONOPIN TAB 0.5 MG PO SCH ×2 (09:29→21:31)
[2018-12-28] MEDS: CELEBREX PO SCH (09:30)
[2018-12-28] MEDS: TAB-A-VITE PO SCH ×2 (09:30→09:36)
[2018-12-28] MEDS: D5W 1000 ML IV 1,000 ML IV SCH ×2 (09:35→21:40)
[2018-12-28] MEDS: OSCAL+D or CALTRATE+D PO SCH ×2 (09:36→21:30)
[2018-12-28] MEDS: FLONASE NASAL SPRAY ENOSTRIL SCH ×2 (09:37→21:29)
[2018-12-28] MEDS: MIRALAX POWDER (1 DOSE 17 G) PO SCH (09:43)
[2018-12-28] MEDS: LIORESAL PO SCH ×3 (09:47→21:40)
[2018-12-28] MEDS: COLACE CAP 100 MG PO SCH (09:47)
[2018-12-28] MEDS ORDERED: PHARMACY CONSULT - DOSE _____ XX SCH (11:00)
[2018-12-28] MEDS ORDERED: TYGACIL 50 MG VIAL 100 MG in NS 100 ML IV 100 ML IV ONE (11:00)
[2018-12-28] MEDS: DIFLUCAN 200 MG IV PREMIX* 200 MG/100 ML BAG IV SCH (11:00)
[2018-12-28] MEDS: MUCOMYST 20% 200 MG/ML NEB SCH ×4 (11:07→20:50)
[2018-12-28] MEDS: TESSALON PERLES PO SCH ×3 (11:08→23:44)
[2018-12-28] MEDS: BENTYL CAP 10 MG PO SCH ×2 (11:08→17:30)
[2018-12-28] MEDS: TIMOPTIC 0.5% EYE DROPS OP SCH ×2 (14:42→21:35)
[2018-12-28] MEDS: ALPHAGAN 0.2% OPHTH SOLN OP SCH ×2 (14:43→21:30)
[2018-12-28] MEDS: COSOPT OPTH OP SCH ×2 (14:44→21:28)
[2018-12-28] MEDS ORDERED: KLOR-CON PO ONE (17:36)
[2018-12-28] MEDS ORDERED: KLOR-CON PO PRN (17:37)
[2018-12-28] MEDS ORDERED: POTASSIUM CHL 40 MEQ/NS 0.45% 500 ML IV PRN (17:37)
[2018-12-28] MEDS ORDERED: POTASSIUM CHL 60 MEQ/NS 0.45% 500 ML IV PRN (17:37)
[2018-12-28] MEDS ORDERED: K-DUR TAB 20 MEQ PO PRN (17:37)
[2018-12-28] MEDS ORDERED: POTASSIUM CHLORIDE LIQ 20 MEQ UDC PO PRN (17:37)
[2018-12-28] MEDS ORDERED: MICRO K EXTEN CAP 10 MEQ PO PRN (17:37)
[2018-12-28] MEDS ORDERED: K-RIDER 10 MEQ/NS 100 ML 10 MEQ/100 ML BAG IV PRN (17:37)
[2018-12-28] MEDS ORDERED: DEPAKOTE D.R. TAB PO ONE (19:17)
[2018-12-28] MEDS: TYGACIL 50 MG VIAL 50 MG in NS 100 ML IV 100 ML IV SCH (21:00)
[2018-12-28] MEDS ORDERED: AMMONIUM LACTATE TP SCH (21:00)
[2018-12-28] MEDS: DEPAKOTE D.R. TAB PO SCH (21:36)
--- NOTE | 2018-12-28 21:56 | DR.H&P ---
H&P - History & Physical for Day of: H&P Date: 12/27/18 - Chief Complaint Chief Complaint: WEAKNESS, AMS, COUGH, INCONTINENCE - History of Present Illness History of Present Illness: IS A 83 YEAR OLD PATIENT OF OURS WHO IS A RESIDENT OF [facility] [place]. SHE PRESENTED TO THE ER WITH REPORTS OF RIGHT SIDED WEAKNESS, ALTERED MENTAL STATUS, INCONTINENCE, AND COUGH. ON ARRIVAL, VITALS WERE 100.4-83-20-93%-137/64. LABS WERE OBTAINED. ABNORMAL LAB VALUES INCLUDE THE FOLLOWING: WBC 13.3, SODIUM 146, CHLORIDE 110, BUN 49, CREATININE 1.10, GLUCOSE 171, CALCIUM 10.9. ABG REVEALED P02 63, OTHERWISE NORMAL. A CHEST XRAY WAS OBTAINED AND REVEALED: New patchy right-sided airspace disease as above, concerning for pneumonia. A BRAIN CT WAS OBTAINED AND REVEALED: Significant paranasal sinus disease with air-fluid levels in the maxi llary and sphenoid sinuses and dense opacification within the ethmoid sinuses extending into the frontal sinuses with central high attenuation raising the question of fungal disease. ENT consultation may be beneficial. No acute intraparenchymal abnormality identified. SHE WAS ADMITTED FOR FURTHER EVALUATION AND TREATMENT OF RIGHT SIDED PNEUMONIA, PARANASAL SINUS DISEASE, AND AMS. SHE WAS STARTED ON 1/2NS AT 75ML/HR, IV TYGACIL, RESPIRATORY TREATMENTS, AND SUPPLEMENTAL OXYGEN. WE PLAN TO FOLLOW UP WITH AM LABS AND CONTINUE TO MONITOR. - Past Medical History Past Medical History: Hypertension, Alzheimers, Dementia, Depression, Anemia, GERD, Arthritis, CHF Additional Medical History: Osteoporosis, LBP, GLAUCOMA - Past Surgical History Surgical History: Cholecystectomy, Hysterectomy Additional Surgical History: ORIF (R) Ankle - Social History Does patient currently use any type of tobacco product: No Have you used tobacco products in the last 12 months: No Type of Tobacco Use: None Does any household member use tobacco: No Alcohol Use: None Drug Use: None - Medications Home Medications: ciprofloxacin Allergy (Verified 07/08/18 11:26) codeine Allergy (Verified 07/08/18 11:26) Penicillins Allergy (Verified 07/08/18 11:26) CONTINUE taking the following medications acetazolamide 250 mg PO BID 12/27/18 [History] amino acids-protein hydrolys 1 packet PO BID 12/27/18 [History] ammonium lactate 1 applic TOPICAL HS 12/27/18 [History] baclofen 10 mg PO TID 12/27/18 [History] biotin 1 mg PO BID 12/27/18 [History] brimonidine 1 drp OPHTHALMIC (EYE) BID 12/27/18 [History] calcium carbonate-vitamin D3 [Calcium 500 + D] 1 tab PO BID 12/27/18 [History] carboxymethylcellulose sodium [Refresh Tears] 1 drp OPHTHALMIC (EYE) TID 12/27/18 [History] celecoxib [Celebrex] 100 mg PO DAILY 12/27/18 [History] clonazepam [Klonopin] 0.25 mg PO BID 12/27/18 [History] diclofenac sodium [Voltaren] 1 % TOPICAL QID 12/27/18 [History] dicyclomine 10 mg PO AC 12/27/18 [History] divalproex [Depakote] 500 mg PO HS 12/27/18 [History] docusate sodium [Colace] 100 mg PO QHS 12/27/18 [History] dorzolamide-timolol 1 drp OPHTHALMIC (EYE) BID 12/27/18 [History] famotidine [Pepcid] 40 mg PO BID 12/27/18 [History] fluticasone [Flonase Allergy Relief] 1 spray INTRANASAL BID 12/27/18 [History] ketoconazole [Nizoral] 1 applic TOPICAL WEEKLY 12/27/18 [History] magnesium hydroxide [Milk Of Magnesia Concentrated] 30 ml PO QHS PRN 12/27/18 [History] meclizine 25 mg PO Q6H PRN 12/27/18 [History] montelukast [Singulair] 10 mg PO QDAY 12/27/18 [History] [id number]-Ca carb-vit K [One-A-Day Womens Formula] 1 tab PO QDAY 12/27/18 [History] paroxetine HCl [Paxil] 10 mg PO QDAY 12/27/18 [History] polyethylene glycol 3350 [Miralax] 17 g PO QDAY 12/27/18 [History] potassium chloride 10 meq PO QDAY 12/27/18 [History] simethicone 160 mg PO QID 12/27/18 [History] timolol maleate 1 drp OPHTHALMIC (EYE) BID 12/27/18 [History] tramadol 50 mg PO Q4H PRN 12/27/18 [History] - Review of Systems Constitutional: See HPI, Fever, Weakness Eyes: No Symptoms Reported ENT: No Symptoms Reported Respiratory: See HPI, Cough, Shortness of Breath, Wheezing Cardiovascular: No Symptoms Reported Gastrointestinal: No Symptoms Reported Genitourinary: No Symptoms Reported Musculoskeletal: No Symptoms Reported Skin: No Symptoms Reported Neurological: Weakness, Confusion - Physical Exam Vital Signs: Temperature 98.6 F Pulse Rate [Left] 69 Pulse Rate 81 Respiratory Rate 18 Blood Pressure [Right Arm] 186/80 Blood Pressure [Left Arm] 126/58 Blood Pressure 137/64 O2 Sat by Pulse Oximetry 99 Oriented: Unable to test Eyes: Normal Ear: Normal Nose: Normal Throat: Normal Respiratory: Rhonchi Throughout, Wheezes Throughout Cardiovascular: Normal : Normal Auscultation: Bowel Sounds: Normal Palpation: Normal Tenderness: Normal Skin: Normal Musculoskeletal: Normal Psychiatric: Other (CONFUSION ) Mood Description: Calm Affect: Normal Speech Pattern: Unclear, Inappropriate - Assessment/Plan (1) Pneumonia Qualifiers: Pneumonia type: due to unspecified organism Laterality: right Lung location: lower lobe of lung Qualified Code(s): J18.1 - Lobar pneumonia, unspecified organism Status: Acute Plan: IV TYGACIL, RESPIRATORY TX, SUPPLEMENTAL OXYGEN, CONTINUE TO MONITOR (2) Paranasal sinus disease Status: Acute Plan: IV TYGACIL, CONTINUE TO MONITOR - Allergies Allergies/Adverse Reactions: Allergies Allergy/AdvReac Type Severity Reaction Status Date / Time ciprofloxacin Allergy Verified 07/08/18 11:26 codeine Allergy Verified 07/08/18 11:26 Penicillins Allergy Verified 07/08/18 11:26
[2018-12-29] MEDS: LIORESAL PO SCH ×3 (05:07→21:56)
[2018-12-29] MEDS: TESSALON PERLES PO SCH ×3 (05:08→21:56)
[2018-12-29 05:30] LABS: BASOPHILS % (AUTO) 0.2 % (0.2-1.0); EOSINOPHILS % (AUTO) 0.5 % (0.9-2.9); HEMOGLOBIN 12.3 g/dL (12.0-16.0); LYMPHOCYTES # (AUTO) 0.6 X10^3/uL (1.3-2.9); LYMPHOCYTES % (AUTO) 6.2 % (21.0-51.0); MEAN CORPUSCULAR HEMOGLOBIN 30.2 pg (27.0-34.0); MEAN CORPUSCULAR HGB CONC 33.2 g/dL (33.0-35.0); MEAN CORPUSCULAR VOLUME 91.1 fL (80.0-100.0); MEAN PLATELET VOLUME 8.3 fL (7.4-11.0); MONOCYTES # (AUTO) 1.1 x10^3/uL (0.3-0.8); MONOCYTES % (AUTO) 12.6 % (0.0-13.0); NEUTROPHILS # (AUTO) 7.3 x10^3/uL (2.2-4.8); NEUTROPHILS % (AUTO) 80.5 % (42.0-75.0); PLATELET COUNT 228 X10^3/uL (150.0-450.0); RED BLOOD COUNT 4.06 X10^6/uL (3.5-5.4); RED CELL DISTRIBUTION WIDTH 14.1 % (11.6-16.5); WHITE BLOOD COUNT 9.1 X10^3/uL (3.6-10.0)
[2018-12-29 05:48] LABS: ALANINE AMINOTRANSFERASE 44 Units/L (12-78); ALBUMIN 2.1 g/dL (3.4-5.0); ALKALINE PHOSPHATASE 198 Units/L (46-116); ASPARTATE AMINO TRANSFERASE 27 Units/L (15-37); BLOOD UREA NITROGEN 52 mg/dL (7-18); CALCIUM 9.6 mg/dL (8.5-10.1); CARBON DIOXIDE 23.9 mmol/L (21-32); CHLORIDE 111 mmol/L (98-107); COR CA(FOR HYPOALB) 11.1 mg/dL (8.5-10.1); COR NA(FOR HYPERGLY) 145 mmol/L (136-145); SODIUM 144 mmol/L (136-145); TOTAL PROTEIN 6.2 g/dL (6.4-8.2); eGFR NON BLACK RACES > 60 (>60)
[2018-12-29] MEDS: BENTYL CAP 10 MG PO SCH ×3 (06:03→17:20)
--- NOTE | 2018-12-29 06:40 | RAD ---
HISTORY: Follow-up pneumonia Study: Chest AP portable Comparison: 12/28/2018 Findings: The heart is within normal limits in size. The yayo are normal. The lungs are well inflated. Interstitial lung changes are present throughout the right lung with superimposed right upper lobe alveolar infiltrate not significantly changed from the prior examination. There is some developing perihilar subsegmental atelectasis in the right lung base. The left lung is clear. No pleural effusions are identified. The bony thorax is unremarkable. The patient's hiatal hernia is not well demonstrated on today's examination. IMPRESSION: Right upper lobe alveolar infiltrate unchanged Developing subsegmental atelectasis right lung base Diffuse chronic appearing interstitial lung changes Reported By:
[2018-12-29] MEDS: ROBITUSSIN DM PO SCH ×4 (08:30→21:55)
[2018-12-29] MEDS: DIFLUCAN 200 MG IV PREMIX* 200 MG/100 ML BAG IV SCH (08:40)
[2018-12-29] MEDS: SINGULAIR TAB 10 MG PO SCH (08:41)
[2018-12-29] MEDS: CELEBREX PO SCH (08:42)
[2018-12-29] MEDS: MYLICON TAB 80 MG CHEW PO SCH ×4 (08:42→21:52)
[2018-12-29] MEDS: DIAMOX PO SCH ×2 (08:42→21:49)
[2018-12-29] MEDS: PEPCID TAB 20 MG PO SCH ×2 (08:42→21:54)
[2018-12-29] MEDS: KLONOPIN TAB 0.5 MG PO SCH ×2 (08:42→21:51)
[2018-12-29] MEDS: OSCAL+D or CALTRATE+D PO SCH ×2 (08:42→21:53)
[2018-12-29] MEDS: TAB-A-VITE PO SCH (08:43)
[2018-12-29] MEDS: MICRO K EXTEN CAP 10 MEQ PO SCH (08:43)
[2018-12-29] MEDS ORDERED: VSL#3 PO SCH (09:00)
[2018-12-29] MEDS: COSOPT OPTH OP SCH ×2 (09:02→21:48)
[2018-12-29] MEDS: ALPHAGAN 0.2% OPHTH SOLN OP SCH ×2 (09:02→21:48)
[2018-12-29] MEDS: TYGACIL 50 MG VIAL 50 MG in NS 100 ML IV 100 ML IV SCH ×2 (09:02→21:55)
[2018-12-29] MEDS: TIMOPTIC 0.5% EYE DROPS OP SCH ×2 (09:03→21:55)
[2018-12-29] MEDS: FLONASE NASAL SPRAY ENOSTRIL SCH ×2 (09:03→21:50)
[2018-12-29] MEDS: MIRALAX POWDER (1 DOSE 17 G) PO SCH (09:03)
[2018-12-29] MEDS: PULMICORT NEB TX 0.5 MG NEB SCH ×2 (09:29→20:44)
[2018-12-29] MEDS: DUONEB 0.5 MG/3 MG NEB SCH ×4 (09:29→20:44)
[2018-12-29] MEDS: MUCOMYST 20% 200 MG/ML NEB SCH ×4 (09:29→20:44)
[2018-12-29] MEDS ORDERED: PULMICORT NEB TX 0.5 MG NEB ONE (09:33)
[2018-12-29] MEDS: CULTURELLE PRO-WELL PROBIOTIC CAP PO SCH (13:36)
[2018-12-29] MEDS: D5W 1000 ML IV 1,000 ML IV SCH (16:27)
[2018-12-29] MEDS ORDERED: DEPAKOTE D.R. TAB PO ONE (21:15)
[2018-12-29] MEDS: COLACE CAP 100 MG PO SCH (21:48)
[2018-12-29] MEDS: DEPAKOTE D.R. TAB PO SCH (21:49)
--- NOTE | 2018-12-29 21:49 | PCM.PROG ---
Progress Note - Progress Note for Day of Date of Exam: 12/28/18 - Subjective Subjective: WAS ADMITTED FOR RIGHT SIDED PNEUMONIA, PARANASAL SINUS DISEASE, AND ALTERED MENTAL STATUS. TODAY, SHE IS ALERT, LYING IN BED ON MORNING ROUNDS. SHE CONTINUES WITH A PRODUCTIVE COUGH. ON EXAMINATION, HEART IS REGULAR IN RATE AND RHYTHM. BILATERAL LUNGS ARE NOTED WITH SCATTERED WHEEZING AND RHONCHI THROUGHOUT. ABDOMEN IS ROUND, SOFT, AND NON-TENDER WITH NORMAL BOWEL SOUNDS NOTED IN ALL QUADRANTS. HER VITALS THIS MORNING ARE 98.0-70-20-96%-148/62. LABS WERE OBTAINED. ABNORMAL LAB VALUES INCLUDE THE FOLLOWING: WBC 12.6, SODIUM 151, CHLORIDE 114, BUN 39, GLUCOSE 136, ALK PHOS 229 , ALBUMIN 2.5, GLOBULIN 4.8. SPUTUM AND BLOOD CULTURES PENDING. A CHEST XRAY WAS OBTAINED AND REVEALED: Right upper lobe infiltrate unchanged. Bibasilar interstitial lung changes. Hiatal hernia. SHE IS CURRENTLY RECEIVING IV TYGACIL, RESPIRATORY TX, AND SUPPLEMENTAL OXYGEN. TODAY, WE WILL START DIFLUCAN 200MG IV DAILY, MUCOMYST TO NEB TX, PROBIOTICS, AND TESSALON PERLES TID. OTHERWISE, WE WILL CONTINUE WITH CURRENT PLAN OF CARE. WE WILL FOLLOW UP WITH AM LABS AND CHEST XRAY AND CONTINUE TO MONITOR. - Past Medical Family Social History Past Med/Fam/Surg Hx: No changes since H&P Allergies: Allergies ciprofloxacin Allergy (Verified 07/08/18 11:26) codeine Allergy (Verified 07/08/18 11:26) Penicillins Allergy (Verified 07/08/18 11:26) - Review of Systems ROS: No change since H&P - Vital Signs and I&O's Vital Signs: Temperature 98.2 F Pulse Rate [Left] 62 Pulse Rate 62 Respiratory Rate 22 Blood Pressure [Right Arm] 186/80 Blood Pressure [Left Arm] 99/52 Blood Pressure 137/64 O2 Sat by Pulse Oximetry 97 Intake and Output: Intake & Output 12/27/18 12/28/18 12/29/18 12/30/18 11:59 11:59 11:59 11:59 Intake Total 900 / 900 3080 / 3080 240 / 240 Output Total 200 / 200 Balance 900 / 900 2880 / 2880 240 / 240 - Physical Exam Oriented: Person Eyes: Normal Ear: Normal Nose: Normal Throat: Normal Respiratory: Generalized, Wheezes, Rhonchi Cardiovascular: Normal : Normal Auscultation: Bowel Sounds: Normal Palpation: Normal Tenderness: Normal Skin: Normal Musculoskeletal: Normal Psychiatric: Other (CONFUSION ) Mood Description: Calm Affect: Normal Speech Pattern: Unclear - Laboratory and Diagnostics Result Diagrams: 12/29/18 04:48 12/29/18 04:48 Labs: 12/27/18 12:01 Blood Blood Culture - Preliminary 12/27/18 19:48 Blood Blood Culture - Preliminary Laboratory WBC 9.1 X10^3/uL (3.6-10.0) 12/29/18 04:48 RBC 4.06 X10^6/uL (3.5-5.4) 12/29/18 04:48 Hgb 12.3 g/dL (12.0-16.0) 12/29/18 04:48 Hct 37.0 % (36.0-47.0) 12/29/18 04:48 MCV 91.1 fL (80.0-100.0) 12/29/18 04:48 MCH 30.2 pg (27.0-34.0) 12/29/18 04:48 MCHC 33.2 g/dL (33.0-35.0) 12/29/18 04:48 RDW 14.1 % (11.6-16.5) 12/29/18 04:48 Plt Count 228 X10^3/uL (150.0-450.0) 12/29/18 04:48 MPV 8.3 fL (7.4-11.0) 12/29/18 04:48 Neut % (Auto) 80.5 % (42.0-75.0) H 12/29/18 04:48 Lymph % (Auto) 6.2 % (21.0-51.0) L 12/29/18 04:48 [place] % (Auto) 12.6 % (0.0-13.0) 12/29/18 04:48 Eos % (Auto) 0.5 % (0.9-2.9) L 12/29/18 04:48 Baso % (Auto) 0.2 % (0.2-1.0) 12/29/18 04:48 Neut # (Auto) 7.3 x10^3/uL (2.2-4.8) H 12/29/18 04:48 Lymph # (Auto) 0.6 X10^3/uL (1.3-2.9) L 12/29/18 04:48 [place] # (Auto) 1.1 x10^3/uL (0.3-0.8) H 12/29/18 04:48 Eos # (Auto) 0.0 x10^3/uL (0.0-0.2) 12/29/18 04:48 Baso # (Auto) 0.0 X10^3/uL (0.0-0.1) 12/29/18 04:48 Absolute Nucleated RBC 0.0 /100WBC 12/29/18 04:48 Sample Site Rb 12/27/18 19:58 ABG pH 7.440 (7.35-7.45) 12/27/18 19:58 ABG pCO2 35.0 mmHg (35.0-45.0) 12/27/18 19:58 ABG pO2 63.0 mmHg (80.0-100.0) L 12/27/18 19:58 ABG HCO3 23.8 mmol/L (22-26) 12/27/18 19:58 ABG O2 Saturation 93.0 % (90-100) 12/27/18 19:58 ABG Base Excess 0.0 mmol/L (-2.0-2.0) 12/27/18 19:58 Doug Test N/a 12/27/18 19:58 A-a Gradient 93.0 mmHg 12/27/18 19:58 FiO2 28.0 12/27/18 19:58 Blood Gas Comments [place] well ae 12/27/18 19:58 Sodium 144 mmol/L (136-145) 12/29/18 04:48 Corrected Sodium 145 mmol/L (136-145) 12/29/18 04:48 Potassium 3.8 mmol/L (3.5-5.1) 12/29/18 04:48 Chloride 111 mmol/L (98-107) H 12/29/18 04:48 Carbon Dioxide 23.9 mmol/L (21-32) 12/29/18 04:48 BUN 52 mg/dL (7-18) H 12/29/18 04:48 Creatinine 0.90 mg/dL (0.55-1.02) 12/29/18 04:48 Est GFR (MDRD) Af Amer > 60 (>60) 12/29/18 04:48 Est GFR (MDRD) Non-Af > 60 (>60) 12/29/18 04:48 Glucose 125 mg/dL (65-99) H 12/29/18 04:48 Calcium 9.6 mg/dL (8.5-10.1) 12/29/18 04:48 Corrected Calcium 11.1 mg/dL (8.5-10.1) H 12/29/18 04:48 Magnesium 2.0 mg/dL (1.7-2.9) 12/28/18 05:36 Total Bilirubin 0.30 mg/dL (0.2-1.0) 12/29/18 04:48 AST 27 Units/L (15-37) 12/29/18 04:48 ALT 44 Units/L (12-78) 12/29/18 04:48 Alkaline Phosphatase 198 Units/L (46-116) H 12/29/18 04:48 Total Protein 6.2 g/dL (6.4-8.2) L 12/29/18 04:48 Albumin 2.1 g/dL (3.4-5.0) L 12/29/18 04:48 Globulin 4.1 g/dL (2.5-4.5) 12/29/18 04:48 Albumin/Globulin Ratio 0.5 Ratio (1.1-2.1) L 12/29/18 04:48 Specimen Type Catherized urine 12/27/18 20:06 Urine Color Yellow (YELLOW) 12/27/18 20:06 Urine Appearance Slightly hazy (CLEAR) 12/27/18 20:06 Urine pH 6.0 (5.0 - 8.0) 12/27/18 20:06 Ur Specific [place] 1.010 (1.000-1.030) 12/27/18 20:06 Urine Protein 3+ (NEGATIVE) 12/27/18 20:06 Urine Glucose (UA) Negative (NEGATIVE) 12/27/18 20:06 Urine Ketones Negative (NEGATIVE) 12/27/18 20:06 Urine Occult Blood 1+ (NEGATIVE) 12/27/18 20:06 Urine Nitrite Negative (NEGATIVE) 12/27/18 20:06 Urine Bilirubin Negative (NEGATIVE) 12/27/18 20:06 Urine Urobilinogen Normal (NORMAL) 12/27/18 20:06 Ur Leukocyte Esterase 1+ (NEGATIVE) 12/27/18 20:06 Urine RBC 0-2 /HPF (NONE SEEN) 12/27/18 20:06 Urine WBC 0-2 /HPF (NONE SEEN) 12/27/18 20:06 Ur Squamous Epith Cells Rare /HPF (NEGATIVE) 12/27/18 20:06 Amorphous Sediment 1+ /HPF (NEGATIVE) 12/27/18 20:06 Urine Bacteria 2+ /HPF (NEGATIVE) 12/27/18 20:06 Ur Culture Indicated? No/not indicated 12/27/18 20:06 - Plan (1) Pneumonia Status: Acute Qualifiers: Pneumonia type: due to unspecified organism Laterality: right Lung location: lower lobe of lung Qualified Code(s): J18.1 - Lobar pneumonia, unspecified organism Plan: IV TYGACIL, RESPIRATORY TX, MUCOMYST TO NEB [place], TESSALON PERLES, SUPPLEMENTAL OXYGEN, CONTINUE TO MONITOR (2) Paranasal sinus disease Status: Acute Plan: IV TYGACIL, IV DIFLUCAN, CONTINUE TO MONITOR
[2018-12-30] MEDS: D5W 1000 ML IV 1,000 ML IV SCH ×2 (00:21→05:56)
[2018-12-30 05:30] LABS: BASOPHILS % (AUTO) 0.3 % (0.2-1.0); EOSINOPHILS # (AUTO) 0.1 x10^3/uL (0.0-0.2); EOSINOPHILS % (AUTO) 1.2 % (0.9-2.9); HEMATOCRIT 35.2 % (36.0-47.0); HEMOGLOBIN 11.5 g/dL (12.0-16.0); LYMPHOCYTES # (AUTO) 0.7 X10^3/uL (1.3-2.9); LYMPHOCYTES % (AUTO) 7.3 % (21.0-51.0); MEAN CORPUSCULAR HGB CONC 32.8 g/dL (33.0-35.0); MEAN CORPUSCULAR VOLUME 91.4 fL (80.0-100.0); MEAN PLATELET VOLUME 8.3 fL (7.4-11.0); MONOCYTES # (AUTO) 1.4 x10^3/uL (0.3-0.8); MONOCYTES % (AUTO) 14.8 % (0.0-13.0); NEUTROPHILS % (AUTO) 76.4 % (42.0-75.0); PLATELET COUNT 228 X10^3/uL (150.0-450.0); RED BLOOD COUNT 3.85 X10^6/uL (3.5-5.4); RED CELL DISTRIBUTION WIDTH 13.9 % (11.6-16.5); WHITE BLOOD COUNT 9.2 X10^3/uL (3.6-10.0)
[2018-12-30 05:42] LABS: ALANINE AMINOTRANSFERASE 40 Units/L (12-78); ALBUMIN 2.1 g/dL (3.4-5.0); ALKALINE PHOSPHATASE 177 Units/L (46-116); ASPARTATE AMINO TRANSFERASE 22 Units/L (15-37); BLOOD UREA NITROGEN 41 mg/dL (7-18); CALCIUM 9.2 mg/dL (8.5-10.1); CARBON DIOXIDE 22.8 mmol/L (21-32); CHLORIDE 106 mmol/L (98-107); COR CA(FOR HYPOALB) 10.7 mg/dL (8.5-10.1); COR NA(FOR HYPERGLY) 138 mmol/L (136-145); CREATININE 0.95 mg/dL (0.55-1.02); SODIUM 138 mmol/L (136-145); TOTAL PROTEIN 5.7 g/dL (6.4-8.2); eGFR NON BLACK RACES 60 (>60)
[2018-12-30] MEDS: LIORESAL PO SCH ×3 (05:56→21:17)
[2018-12-30] MEDS: BENTYL CAP 10 MG PO SCH ×3 (05:57→18:06)
[2018-12-30] MEDS: TESSALON PERLES PO SCH ×3 (05:57→21:15)
--- NOTE | 2018-12-30 06:56 | RAD ---
HISTORY: Shortness of breath Study: Chest AP portable Comparison: 12/29/2018 Findings: The patient is rotated to the left. The heart is within normal limits in size. The yayo are normal. The lungs remain well inflated and diffusely involved with interstitial lung disease. Superimposed on the chronic lung disease is right upper lobe alveolar infiltrate not changed from the prior examination. Subsegmental atelectasis present in the right lung base. The left lung is free of acute infiltrates. No definite pleural effusions are identified. The bony thorax is unremarkable. IMPRESSION: No significant change from the prior examination Reported By:
[2018-12-30] MEDS: MYLICON TAB 80 MG CHEW PO SCH ×4 (08:16→21:16)
[2018-12-30] MEDS: DIAMOX PO SCH ×2 (08:24→21:15)
[2018-12-30] MEDS: CELEBREX PO SCH (08:32)
[2018-12-30] MEDS: COSOPT OPTH OP SCH ×2 (08:32→21:18)
[2018-12-30] MEDS: ALPHAGAN 0.2% OPHTH SOLN OP SCH ×2 (08:33→21:18)
[2018-12-30] MEDS: DIFLUCAN 200 MG IV PREMIX* 200 MG/100 ML BAG IV SCH (08:33)
[2018-12-30] MEDS: KLONOPIN TAB 0.5 MG PO SCH ×3 (08:34→21:18)
[2018-12-30] MEDS: FLONASE NASAL SPRAY ENOSTRIL SCH ×2 (08:34→21:19)
[2018-12-30] MEDS: OSCAL+D or CALTRATE+D PO SCH ×2 (08:35→21:16)
[2018-12-30] MEDS: MIRALAX POWDER (1 DOSE 17 G) PO SCH (08:35)
[2018-12-30] MEDS: MICRO K EXTEN CAP 10 MEQ PO SCH (08:35)
[2018-12-30] MEDS: ROBITUSSIN DM PO SCH ×4 (08:36→21:15)
[2018-12-30] MEDS: SINGULAIR TAB 10 MG PO SCH (08:36)
[2018-12-30] MEDS: TAB-A-VITE PO SCH (08:37)
[2018-12-30] MEDS: DUONEB 0.5 MG/3 MG NEB SCH ×4 (08:42→20:04)
[2018-12-30] MEDS: PULMICORT NEB TX 0.5 MG NEB SCH ×2 (08:42→20:04)
[2018-12-30] MEDS: MUCOMYST 20% 200 MG/ML NEB SCH ×4 (08:42→20:04)
[2018-12-30] MEDS: TIMOPTIC 0.5% EYE DROPS OP SCH ×2 (09:00→21:19)
[2018-12-30] MEDS: TYGACIL 50 MG VIAL 50 MG in NS 100 ML IV 100 ML IV SCH ×2 (09:01→21:16)
[2018-12-30] MEDS: CULTURELLE PRO-WELL PROBIOTIC CAP PO SCH (10:41)
[2018-12-30] MEDS: PEPCID TAB 20 MG PO SCH ×2 (10:41→21:16)
[2018-12-30] MEDS ORDERED: BUTT CREAM (COMPOUND) ONE (12:14)
[2018-12-30] MEDS ORDERED: DEPAKOTE D.R. TAB PO ONE (20:11)
--- NOTE | 2018-12-30 21:03 | PCM.PROG ---
Progress Note - Progress Note for Day of Date of Exam: 12/29/18 - Subjective Subjective: WAS ADMITTED FOR RIGHT SIDED PNEUMONIA, PARANASAL SINUS DISEASE, AND ALTERED MENTAL STATUS. TODAY, SHE IS LYING IN BED ON MORNING ROUNDS. SHE CONTINUES WITH A PRODUCTIVE COUGH. ON EXAMINATION, HEART IS REGULAR IN RATE AND RHYTHM. BILATERAL LUNGS CONTINUE WITH SCATTERED WHEEZING AND RHONCHI THROUGHOUT. ABDOMEN IS ROUND, SOFT, AND NON-TENDER WITH NORMAL BOWEL SOUNDS NOTED IN ALL QUADRANTS. HER VITALS THIS MORNING ARE 98.6-57-20-96%-122/53. LABS WERE OBTAINED. ABNORMAL LAB VALUES INCLUDE THE FOLLOWING: CHLORIDE 111, BUN 52, GLUCOSE 125, ALK PHOS 198, TOTAL PROTEIN 6.2, ALBUMIN 2.1. SPUTUM AND BLOOD CULTURES PENDING. A CHEST XRAY WAS OBTAINED AND REVEALED: Right upper lobe infi ltrate unchanged. Bibasilar interstitial lung changes. Hiatal hernia. SHE IS CURRENTLY RECEIVING IV TYGACIL, RESPIRATORY TX, AND SUPPLEMENTAL OXYGEN. TODAY, WE WILL START DIFLUCAN 200MG IV DAILY, MUCOMYST TO NEB TX, PROBIOTICS, AND TESSALON PERLES TID. TODAY, WE WILL ADD PULMICORT NEB TX. OTHERWISE, WE WILL CONTINUE WITH CURRENT PLAN OF CARE. WE WILL FOLLOW UP WITH AM LABS AND CHEST XRAY AND CONTINUE TO MONITOR. - Past Medical Family Social History Past Med/Fam/Surg Hx: No changes since H&P Allergies: Allergies ciprofloxacin Allergy (Verified 07/08/18 11:26) codeine Allergy (Verified 07/08/18 11:26) Penicillins Allergy (Verified 07/08/18 11:26) - Review of Systems ROS: No change since H&P - Vital Signs and I&O's Vital Signs: Temperature 98.1 F Pulse Rate [Left] 53 Pulse Rate 76 Respiratory Rate 22 Blood Pressure [Right Arm] 186/80 Blood Pressure [Left Arm] 126/56 Blood Pressure 137/64 O2 Sat by Pulse Oximetry 95 Intake and Output: Intake & Output 12/28/18 12/29/18 12/30/18 12/31/18 11:59 11:59 11:59 11:59 Intake Total 900 / 900 3080 / 3080 1695 / 1695 915 / 915 Output Total 200 / 200 Balance 900 / 900 2880 / 2880 1695 / 1695 915 / 915 - Physical Exam Oriented: Person Eyes: Normal Ear: Normal Nose: Normal Throat: Normal Respiratory: Generalized, Wheezes, Rhonchi Cardiovascular: Normal : Normal Auscultation: Bowel Sounds: Normal Palpation: Normal Tenderness: Normal Skin: Normal Musculoskeletal: Normal Psychiatric: Other (CONFUSION ) Mood Description: Calm Affect: Normal Speech Pattern: Unclear - Laboratory and Diagnostics Result Diagrams: 12/30/18 04:43 12/30/18 04:43 Labs: 12/27/18 12:01 Blood Blood Culture - Preliminary 12/27/18 19:48 Blood Blood Culture - Preliminary Laboratory WBC 9.2 X10^3/uL (3.6-10.0) 12/30/18 04:43 RBC 3.85 X10^6/uL (3.5-5.4) 12/30/18 04:43 Hgb 11.5 g/dL (12.0-16.0) L 12/30/18 04:43 Hct 35.2 % (36.0-47.0) L 12/30/18 04:43 MCV 91.4 fL (80.0-100.0) 12/30/18 04:43 MCH 30.0 pg (27.0-34.0) 12/30/18 04:43 MCHC 32.8 g/dL (33.0-35.0) L 12/30/18 04:43 RDW 13.9 % (11.6-16.5) 12/30/18 04:43 Plt Count 228 X10^3/uL (150.0-450.0) 12/30/18 04:43 MPV 8.3 fL (7.4-11.0) 12/30/18 04:43 Neut % (Auto) 76.4 % (42.0-75.0) H 12/30/18 04:43 Lymph % (Auto) 7.3 % (21.0-51.0) L 12/30/18 04:43 [place] % (Auto) 14.8 % (0.0-13.0) H 12/30/18 04:43 Eos % (Auto) 1.2 % (0.9-2.9) 12/30/18 04:43 Baso % (Auto) 0.3 % (0.2-1.0) 12/30/18 04:43 Neut # (Auto) 7.0 x10^3/uL (2.2-4.8) H 12/30/18 04:43 Lymph # (Auto) 0.7 X10^3/uL (1.3-2.9) L 12/30/18 04:43 [place] # (Auto) 1.4 x10^3/uL (0.3-0.8) H 12/30/18 04:43 Eos # (Auto) 0.1 x10^3/uL (0.0-0.2) 12/30/18 04:43 Baso # (Auto) 0.0 X10^3/uL (0.0-0.1) 12/30/18 04:43 Absolute Nucleated RBC 0.0 /100WBC 12/30/18 04:43 Sample Site Rb 12/27/18 19:58 ABG pH 7.440 (7.35-7.45) 12/27/18 19:58 ABG pCO2 35.0 mmHg (35.0-45.0) 12/27/18 19:58 ABG pO2 63.0 mmHg (80.0-100.0) L 12/27/18 19:58 ABG HCO3 23.8 mmol/L (22-26) 12/27/18 19:58 ABG O2 Saturation 93.0 % (90-100) 12/27/18 19:58 ABG Base Excess 0.0 mmol/L (-2.0-2.0) 12/27/18 19:58 Doug Test N/a 12/27/18 19:58 A-a Gradient 93.0 mmHg 12/27/18 19:58 FiO2 28.0 12/27/18 19:58 Blood Gas Comments [place] well ae 12/27/18 19:58 Sodium 138 mmol/L (136-145) 12/30/18 04:43 Corrected Sodium 138 mmol/L (136-145) 12/30/18 04:43 Potassium 3.7 mmol/L (3.5-5.1) 12/30/18 04:43 Chloride 106 mmol/L (98-107) 12/30/18 04:43 Carbon Dioxide 22.8 mmol/L (21-32) 12/30/18 04:43 BUN 41 mg/dL (7-18) H 12/30/18 04:43 Creatinine 0.95 mg/dL (0.55-1.02) 12/30/18 04:43 Est GFR (MDRD) Af Amer > 60 (>60) 12/30/18 04:43 Est GFR (MDRD) Non-Af 60 (>60) 12/30/18 04:43 Glucose 120 mg/dL (65-99) H 12/30/18 04:43 Calcium 9.2 mg/dL (8.5-10.1) 12/30/18 04:43 Corrected Calcium 10.7 mg/dL (8.5-10.1) H 12/30/18 04:43 Magnesium 2.0 mg/dL (1.7-2.9) 12/28/18 05:36 Total Bilirubin 0.30 mg/dL (0.2-1.0) 12/30/18 04:43 AST 22 Units/L (15-37) 12/30/18 04:43 ALT 40 Units/L (12-78) 12/30/18 04:43 Alkaline Phosphatase 177 Units/L (46-116) H 12/30/18 04:43 Total Protein 5.7 g/dL (6.4-8.2) L 12/30/18 04:43 Albumin 2.1 g/dL (3.4-5.0) L 12/30/18 04:43 Globulin 3.6 g/dL (2.5-4.5) 12/30/18 04:43 Albumin/Globulin Ratio 0.6 Ratio (1.1-2.1) L 12/30/18 04:43 Specimen Type Catherized urine 12/27/18 20:06 Urine Color Yellow (YELLOW) 12/27/18 20:06 Urine Appearance Slightly hazy (CLEAR) 12/27/18 20:06 Urine pH 6.0 (5.0 - 8.0) 12/27/18 20:06 Ur Specific [place] 1.010 (1.000-1.030) 12/27/18 20:06 Urine Protein 3+ (NEGATIVE) 12/27/18 20:06 Urine Glucose (UA) Negative (NEGATIVE) 12/27/18 20:06 Urine Ketones Negative (NEGATIVE) 12/27/18 20:06 Urine Occult Blood 1+ (NEGATIVE) 12/27/18 20:06 Urine Nitrite Negative (NEGATIVE) 12/27/18 20:06 Urine Bilirubin Negative (NEGATIVE) 12/27/18 20:06 Urine Urobilinogen Normal (NORMAL) 12/27/18 20:06 Ur Leukocyte Esterase 1+ (NEGATIVE) 12/27/18 20:06 Urine RBC 0-2 /HPF (NONE SEEN) 12/27/18 20:06 Urine WBC 0-2 /HPF (NONE SEEN) 12/27/18 20:06 Ur Squamous Epith Cells Rare /HPF (NEGATIVE) 12/27/18 20:06 Amorphous Sediment 1+ /HPF (NEGATIVE) 12/27/18 20:06 Urine Bacteria 2+ /HPF (NEGATIVE) 12/27/18 20:06 Ur Culture Indicated? No/not indicated 12/27/18 20:06 - Plan (1) Pneumonia Status: Acute Qualifiers: Pneumonia type: due to unspecified organism Laterality: right Lung location: lower lobe of lung Qualified Code(s): J18.1 - Lobar pneumonia, unspecified organism Plan: IV TYGACIL, RESPIRATORY TX, MUCOMYST TO NEB [place], TESSALON PERLES, SUPPLEMENTAL OXYGEN, CONTINUE TO MONITOR (2) Paranasal sinus disease Status: Acute Plan: IV TYGACIL, IV DIFLUCAN, CONTINUE TO MONITOR
[2018-12-30] MEDS: COLACE CAP 100 MG PO SCH (21:17)
[2018-12-30] MEDS: DEPAKOTE D.R. TAB PO SCH (21:17)
[2018-12-31] MEDS ORDERED: NS 1000 ML 0 ML ONE (00:59)
[2018-12-31] MEDS: D5W 1000 ML IV 1,000 ML IV SCH ×3 (01:07→07:38)
[2018-12-31 05:07] LABS: BASOPHILS % (AUTO) 0.4 % (0.2-1.0); EOSINOPHILS # (AUTO) 0.1 x10^3/uL (0.0-0.2); EOSINOPHILS % (AUTO) 1.4 % (0.9-2.9); HEMATOCRIT 36.4 % (36.0-47.0); HEMOGLOBIN 12.1 g/dL (12.0-16.0); LYMPHOCYTES # (AUTO) 0.6 X10^3/uL (1.3-2.9); LYMPHOCYTES % (AUTO) 6.1 % (21.0-51.0); MEAN CORPUSCULAR HEMOGLOBIN 29.9 pg (27.0-34.0); MEAN CORPUSCULAR HGB CONC 33.2 g/dL (33.0-35.0); MEAN PLATELET VOLUME 8.3 fL (7.4-11.0); MONOCYTES # (AUTO) 1.4 x10^3/uL (0.3-0.8); NEUTROPHILS # (AUTO) 7.9 x10^3/uL (2.2-4.8); NEUTROPHILS % (AUTO) 78.1 % (42.0-75.0); PLATELET COUNT 273 X10^3/uL (150.0-450.0); RED BLOOD COUNT 4.04 X10^6/uL (3.5-5.4); RED CELL DISTRIBUTION WIDTH 13.8 % (11.6-16.5); WHITE BLOOD COUNT 10.1 X10^3/uL (3.6-10.0)
[2018-12-31] MEDS: LIORESAL PO SCH (05:22)
[2018-12-31] MEDS: TESSALON PERLES PO SCH (05:23)
[2018-12-31 05:27] LABS: ALANINE AMINOTRANSFERASE 39 Units/L (12-78); ALKALINE PHOSPHATASE 185 Units/L (46-116); ASPARTATE AMINO TRANSFERASE 23 Units/L (15-37); BLOOD UREA NITROGEN 27 mg/dL (7-18); CARBON DIOXIDE 22.2 mmol/L (21-32); CHLORIDE 106 mmol/L (98-107); COR CA(FOR HYPOALB) 10.6 mg/dL (8.5-10.1); COR NA(FOR HYPERGLY) 138 mmol/L (136-145); CREATININE 0.79 mg/dL (0.55-1.02); SODIUM 137 mmol/L (136-145); TOTAL PROTEIN 5.6 g/dL (6.4-8.2); eGFR NON BLACK RACES > 60 (>60)
[2018-12-31] MEDS: BENTYL CAP 10 MG PO SCH (06:39)
--- NOTE | 2018-12-31 07:04 | RAD ---
HISTORY: Shortness of breath Study: Chest AP portable Comparison: 12/30/2018 Findings: Patient is rotated to the left. The heart remains within normal limits in size. No congestive heart failure is noted. The lungs are well inflated and diffusely involved with interstitial lung disease. Right upper lobe infiltrate is slightly improved when compared with the prior examination. There is subsegmental atelectasis in the right base unchanged. The left lung is free of acute infiltrates. No pleural effusions are identified. The bony thorax is unremarkable. IMPRESSION: No significant change from the prior examination with the exception of slight improvement in the alveolar right upper lobe infiltrate Reported By:
[2018-12-31] MEDS: MYLICON TAB 80 MG CHEW PO SCH (08:10)
[2018-12-31] MEDS: TYGACIL 50 MG VIAL 50 MG in NS 100 ML IV 100 ML IV SCH (08:10)
[2018-12-31] MEDS: ROBITUSSIN DM PO SCH (08:10)
[2018-12-31] MEDS: DIAMOX PO SCH (08:10)
[2018-12-31] MEDS: PEPCID TAB 20 MG PO SCH (08:11)
[2018-12-31] MEDS: MIRALAX POWDER (1 DOSE 17 G) PO SCH (08:11)
[2018-12-31] MEDS: OSCAL+D or CALTRATE+D PO SCH (08:11)
[2018-12-31] MEDS: TAB-A-VITE PO SCH (08:12)
[2018-12-31] MEDS: CULTURELLE PRO-WELL PROBIOTIC CAP PO SCH (08:12)
[2018-12-31] MEDS: CELEBREX PO SCH (08:12)
[2018-12-31] MEDS: SINGULAIR TAB 10 MG PO SCH (08:12)
[2018-12-31] MEDS: MICRO K EXTEN CAP 10 MEQ PO SCH (08:12)
[2018-12-31] MEDS: KLONOPIN TAB 0.5 MG PO SCH ×2 (08:12→10:31)
[2018-12-31] MEDS: DIFLUCAN 200 MG IV PREMIX* 200 MG/100 ML BAG IV SCH (08:13)
[2018-12-31 08:37] VITALS: BP 138/88
[2018-12-31] MEDS: PULMICORT NEB TX 0.5 MG NEB SCH (08:42)
[2018-12-31] MEDS: DUONEB 0.5 MG/3 MG NEB SCH (08:42)
[2018-12-31] MEDS: COSOPT OPTH OP SCH (10:28)
[2018-12-31] MEDS: FLONASE NASAL SPRAY ENOSTRIL SCH (10:28)
[2018-12-31] MEDS: ALPHAGAN 0.2% OPHTH SOLN OP SCH (10:28)
[2018-12-31] MEDS: TIMOPTIC 0.5% EYE DROPS OP SCH (10:28)
--- NOTE | 2018-12-31 13:26 | PCM.PROG ---
Progress Note - Progress Note for Day of Date of Exam: 12/30/18 - Subjective Subjective: WAS ADMITTED FOR RIGHT SIDED PNEUMONIA, PARANASAL SINUS DISEASE, AND ALTERED MENTAL STATUS. TODAY, SHE IS LYING IN BED ON MORNING ROUNDS. SHE CONTINUES WITH A PRODUCTIVE COUGH. ON EXAMINATION, HEART IS REGULAR IN RATE AND RHYTHM. BILATERAL LUNGS CONTINUE WITH SCATTERED WHEEZING AND RHONCHI THROUGHOUT. ABDOMEN IS ROUND, SOFT, AND NON-TENDER WITH NORMAL BOWEL SOUNDS NOTED IN ALL QUADRANTS. HER VITALS THIS MORNING ARE 99.8-54-20-95%-119/56. LABS WERE OBTAINED. ABNORMAL LAB VALUES INCLUDE THE FOLLOWING: HGB 11.5, HCT 35.2, BUN 41, GLUCOSE 120, ALK PHOS 177, TOTAL PROTEIN 5.7, ALBUMIN 2.1. SPUTUM AND BLOOD CULTURES PENDING. A CHEST XRAY WAS OBTAINED AND REVEALED: No significant change from the prior examination. SHE IS CURRENTLY RECEIVING IV TYGACIL, DIFLUCAN 200MG IV, PROBIOTICS, TESSALON PERLES, RESPIRATORY TX, AND SUPPLEMENTAL OXYGEN. TODAY, WE WILL ORDER FOR HER TO WEAR THE SMARTVEST. OTHERWISE, WE WILL CONTINUE WITH CURRENT PLAN OF CARE. WE WILL FOLLOW UP WITH AM LABS AND CHEST XRAY AND CONTINUE TO MONITOR. - Past Medical Family Social History Past Med/Fam/Surg Hx: No changes since H&P Allergies: Allergies ciprofloxacin Allergy (Verified 07/08/18 11:26) codeine Allergy (Verified 07/08/18 11:26) Penicillins Allergy (Verified 07/08/18 11:26) - Review of Systems ROS: No change since H&P - Vital Signs and I&O's Vital Signs: Temperature 97.0 F Pulse Rate [Left] 53 Pulse Rate 76 Respiratory Rate 18 Blood Pressure [Right Arm] 186/80 Blood Pressure [Left Arm] 138/88 Blood Pressure 137/64 O2 Sat by Pulse Oximetry 99 Intake and Output: Intake & Output 12/29/18 12/30/18 12/31/18 01/01/19 11:59 11:59 11:59 11:59 Intake Total 3080 / 3080 1695 / 1695 1035 / 1035 Output Total 200 / 200 Balance 2880 / 2880 1695 / 1695 1035 / 1035 - Physical Exam Oriented: Person Eyes: Normal Ear: Normal Nose: Normal Throat: Normal Respiratory: Generalized, Wheezes, Rhonchi Cardiovascular: Normal : Normal Auscultation: Bowel Sounds: Normal Tenderness: Normal Skin: Normal Musculoskeletal: Normal Psychiatric: Other (CONFUSION ) Mood Description: Calm Affect: Normal Speech Pattern: Unclear - Laboratory and Diagnostics Result Diagrams: 12/31/18 04:25 12/31/18 04:25 Labs: 12/27/18 12:01 Blood Blood Culture - Preliminary 12/27/18 19:48 Blood Blood Culture - Preliminary Laboratory WBC 10.1 X10^3/uL (3.6-10.0) H 12/31/18 04:25 RBC 4.04 X10^6/uL (3.5-5.4) 12/31/18 04:25 Hgb 12.1 g/dL (12.0-16.0) 12/31/18 04:25 Hct 36.4 % (36.0-47.0) 12/31/18 04:25 MCV 90.0 fL (80.0-100.0) 12/31/18 04:25 MCH 29.9 pg (27.0-34.0) 12/31/18 04:25 MCHC 33.2 g/dL (33.0-35.0) 12/31/18 04:25 RDW 13.8 % (11.6-16.5) 12/31/18 04:25 Plt Count 273 X10^3/uL (150.0-450.0) 12/31/18 04:25 MPV 8.3 fL (7.4-11.0) 12/31/18 04:25 Neut % (Auto) 78.1 % (42.0-75.0) H 12/31/18 04:25 Lymph % (Auto) 6.1 % (21.0-51.0) L 12/31/18 04:25 [place] % (Auto) 14.0 % (0.0-13.0) H 12/31/18 04:25 Eos % (Auto) 1.4 % (0.9-2.9) 12/31/18 04:25 Baso % (Auto) 0.4 % (0.2-1.0) 12/31/18 04:25 Neut # (Auto) 7.9 x10^3/uL (2.2-4.8) H 12/31/18 04:25 Lymph # (Auto) 0.6 X10^3/uL (1.3-2.9) L 12/31/18 04:25 [place] # (Auto) 1.4 x10^3/uL (0.3-0.8) H 12/31/18 04:25 Eos # (Auto) 0.1 x10^3/uL (0.0-0.2) 12/31/18 04:25 Baso # (Auto) 0.0 X10^3/uL (0.0-0.1) 12/31/18 04:25 Absolute Nucleated RBC 0.0 /100WBC 12/31/18 04:25 Sample Site Rb 12/27/18 19:58 ABG pH 7.440 (7.35-7.45) 12/27/18 19:58 ABG pCO2 35.0 mmHg (35.0-45.0) 12/27/18 19:58 ABG pO2 63.0 mmHg (80.0-100.0) L 12/27/18 19:58 ABG HCO3 23.8 mmol/L (22-26) 12/27/18 19:58 ABG O2 Saturation 93.0 % (90-100) 12/27/18 19:58 ABG Base Excess 0.0 mmol/L (-2.0-2.0) 12/27/18 19:58 Doug Test N/a 12/27/18 19:58 A-a Gradient 93.0 mmHg 12/27/18 19:58 FiO2 28.0 12/27/18 19:58 Blood Gas Comments [place] well ae 12/27/18 19:58 Sodium 137 mmol/L (136-145) 12/31/18 04:25 Corrected Sodium 138 mmol/L (136-145) 12/31/18 04:25 Potassium 3.5 mmol/L (3.5-5.1) 12/31/18 04:25 Chloride 106 mmol/L (98-107) 12/31/18 04:25 Carbon Dioxide 22.2 mmol/L (21-32) 12/31/18 04:25 BUN 27 mg/dL (7-18) H 12/31/18 04:25 Creatinine 0.79 mg/dL (0.55-1.02) 12/31/18 04:25 Est GFR (MDRD) Af Amer > 60 (>60) 12/31/18 04:25 Est GFR (MDRD) Non-Af > 60 (>60) 12/31/18 04:25 Glucose 121 mg/dL (65-99) H 12/31/18 04:25 Calcium 9.0 mg/dL (8.5-10.1) 12/31/18 04:25 Corrected Calcium 10.6 mg/dL (8.5-10.1) H 12/31/18 04:25 Magnesium 2.0 mg/dL (1.7-2.9) 12/28/18 05:36 Total Bilirubin 0.30 mg/dL (0.2-1.0) 12/31/18 04:25 AST 23 Units/L (15-37) 12/31/18 04:25 ALT 39 Units/L (12-78) 12/31/18 04:25 Alkaline Phosphatase 185 Units/L (46-116) H 12/31/18 04:25 Total Protein 5.6 g/dL (6.4-8.2) L 12/31/18 04:25 Albumin 2.0 g/dL (3.4-5.0) L 12/31/18 04:25 Globulin 3.6 g/dL (2.5-4.5) 12/31/18 04:25 Albumin/Globulin Ratio 0.6 Ratio (1.1-2.1) L 12/31/18 04:25 Specimen Type Catherized urine 12/27/18 20:06 Urine Color Yellow (YELLOW) 12/27/18 20:06 Urine Appearance Slightly hazy (CLEAR) 12/27/18 20:06 Urine pH 6.0 (5.0 - 8.0) 12/27/18 20:06 Ur Specific [place] 1.010 (1.000-1.030) 12/27/18 20:06 Urine Protein 3+ (NEGATIVE) 12/27/18 20:06 Urine Glucose (UA) Negative (NEGATIVE) 12/27/18 20:06 Urine Ketones Negative (NEGATIVE) 12/27/18 20:06 Urine Occult Blood 1+ (NEGATIVE) 12/27/18 20:06 Urine Nitrite Negative (NEGATIVE) 12/27/18 20:06 Urine Bilirubin Negative (NEGATIVE) 12/27/18 20:06 Urine Urobilinogen Normal (NORMAL) 12/27/18 20:06 Ur Leukocyte Esterase 1+ (NEGATIVE) 12/27/18 20:06 Urine RBC 0-2 /HPF (NONE SEEN) 12/27/18 20:06 Urine WBC 0-2 /HPF (NONE SEEN) 12/27/18 20:06 Ur Squamous Epith Cells Rare /HPF (NEGATIVE) 12/27/18 20:06 Amorphous Sediment 1+ /HPF (NEGATIVE) 12/27/18 20:06 Urine Bacteria 2+ /HPF (NEGATIVE) 12/27/18 20:06 Ur Culture Indicated? No/not indicated 12/27/18 20:06 - Plan (1) Pneumonia Status: Acute Qualifiers: Pneumonia type: due to unspecified organism Laterality: right Lung location: lower lobe of lung Qualified Code(s): J18.1 - Lobar pneumonia, unspecified organism Plan: IV TYGACIL, RESPIRATORY TX, MUCOMYST TO NEB TX, TESSALON PERLES, SUPPLEMENTAL OXYGEN, CONTINUE TO MONITOR (2) Paranasal sinus disease Status: Acute Plan: IV TYGACIL, IV DIFLUCAN, CONTINUE TO MONITOR
== END 2018-12-31 11:35 | DRG 195 ==
LOC: MED/SURG 19:13 → ER 19:13 → OBSVTOIN 22:38 → MED/SURG 23:18
PROVIDERS: ADMIT Obstetrics & Gynecology Obstetrics; ATTEND Internal Medicine
DX: R06.02 Shortness of breath; M13.89 Other specified arthritis, multiple sites; R26.89 Other abnormalities of gait and mobility; Z66 Do not resuscitate; R53.1 Weakness; F02.80 Dementia in other diseases classified elsewhere, unspecified severity, without behavioral disturbance, psychotic disturbance, mood disturbance, and anxiety; R94.4 Abnormal results of kidney function studies; R73.09 Other abnormal glucose; I10 Essential (primary) hypertension; F32.89 Other specified depressive episodes; J34.89 Other specified disorders of nose and nasal sinuses; J18.8 Other pneumonia, unspecified organism; G30.8 Other Alzheimer's disease; R41.82 Altered mental status, unspecified; K21.9 Gastro-esophageal reflux disease without esophagitis; K44.9 Diaphragmatic hernia without obstruction or gangrene; R13.11 Dysphagia, oral phase
CPT/HCPCS: 36415; 36600; 51701; 70450; 71010; 71045; 80048; 80053; 81001; 82803; 83735; 85025; 87040; 92610; 94640; 94669; 94760; 96365; 96367; 97110; 97161; 97166; 97535; 99284; A4216; A4222; J1450; J3243; J3480; J7030; J7050; J7060; J7620; J7626

== ENCOUNTER 2019-07-15 13:54 | Inpatient (IN) ==
[2019-07-15] MEDS ORDERED: CONSULT PHARMACY - ANTIBIOTIC XX SCH (15:23)
[2019-07-15 16:03] LABS: BASOPHILS # (AUTO) 0.1 X10^3/uL (0.0-0.1); BASOPHILS % (AUTO) 0.6 % (0.2-1.0); EOSINOPHILS % (AUTO) 0.4 % (0.9-2.9); HEMATOCRIT 41.8 % (36.0-47.0); HEMOGLOBIN 13.7 g/dL (12.0-16.0); LYMPHOCYTES # (AUTO) 0.3 X10^3/uL (1.3-2.9); LYMPHOCYTES % (AUTO) 2.8 % (21.0-51.0); MEAN CORPUSCULAR HEMOGLOBIN 30.7 pg (27.0-34.0); MEAN CORPUSCULAR HGB CONC 32.8 g/dL (33.0-35.0); MEAN CORPUSCULAR VOLUME 93.6 fL (80.0-100.0); MEAN PLATELET VOLUME 8.5 fL (7.4-11.0); MONOCYTES % (AUTO) 9.5 % (0.0-13.0); NEUTROPHILS # (AUTO) 9.6 x10^3/uL (2.2-4.8); NEUTROPHILS % (AUTO) 86.7 % (42.0-75.0); PLATELET COUNT 299 X10^3/uL (150.0-450.0); RED BLOOD COUNT 4.47 X10^6/uL (3.5-5.4); RED CELL DISTRIBUTION WIDTH 14.9 % (11.6-16.5)
[2019-07-15 16:12] VITALS: BMI 20.4
[2019-07-15 16:45] LABS: BLOOD UREA NITROGEN 38 mg/dL (7-18); CALCIUM 10.8 mg/dL (8.5-10.1); CARBON DIOXIDE 26.2 mmol/L (21-32); CHLORIDE 114 mmol/L (98-107); COR NA(FOR HYPERGLY) 154 mmol/L (136-145); CREATININE 1.01 mg/dL (0.55-1.02); eGFR NON BLACK RACES 56 (>60)
[2019-07-15] MEDS ORDERED: SALINE 3% 15 ML NEB TX NEB ONE (16:46)
[2019-07-15 16:52] LABS: SODIUM 152 mmol/L (136-145)
[2019-07-15 16:54] LABS: ALANINE AMINOTRANSFERASE 55 Units/L (12-78); ALKALINE PHOSPHATASE 243 Units/L (46-116); ASPARTATE AMINO TRANSFERASE 28 Units/L (15-37); TOTAL PROTEIN 7.1 g/dL (6.4-8.2)
[2019-07-15 16:55] LABS: ALBUMIN 2.3 g/dL (3.4-5.0); COR CA(FOR HYPOALB) 12.2 mg/dL (8.5-10.1)
[2019-07-15] MEDS ORDERED: DUONEB 0.5 MG/3 MG NEB SCH (17:00)
[2019-07-15] MEDS ORDERED: NS 1/2 1000 ML IV 1,000 ML IV ONE (17:05)
[2019-07-15] MEDS: FORTAZ or TAZICEF VIAL INJ 1 G in NS 100 ML IV + SPIKE MINIBAG* 100 ML IV SCH ×2 (17:40→21:46)
[2019-07-15] MEDS: ROBITUSSIN DM PO SCH ×3 (17:40→21:43)
[2019-07-15] MEDS: NS 1/2 1000 ML IV 1,000 ML IV SCH (17:40)
[2019-07-15] MEDS ORDERED: K-DUR TAB 20 MEQ PO PRN (18:39)
[2019-07-15] MEDS ORDERED: KLOR-CON PO PRN (18:39)
[2019-07-15] MEDS ORDERED: POTASSIUM CHLORIDE LIQ 20 MEQ UDC PO PRN (18:39)
[2019-07-15] MEDS ORDERED: POTASSIUM CHL 40 MEQ/NS 0.45% 500 ML IV PRN (18:39)
[2019-07-15] MEDS ORDERED: POTASSIUM CHL 60 MEQ/NS 0.45% 500 ML IV PRN (18:39)
[2019-07-15] MEDS ORDERED: MICRO K EXTEN CAP 10 MEQ PO PRN (18:39)
--- NOTE | 2019-07-15 19:25 | RAD ---
HISTORY: Follow-up pneumonia Study: Chest AP portable Comparison: 07/13/2019 Findings: The heart is within normal limits in size. The yayo are normal. The aorta is mildly ectatic. The lungs are well inflated and free of acute alveolar infiltrates. Interstitial lung changes are present slightly more prominent on the right than the left and unchanged from the prior examination. This may indicate a pneumonitis on the right. No alveolar infiltrates or pleural effusions are identified. IMPRESSION: Interstitial lung changes bilaterally somewhat more prominent on the right than the left possibly indicative of right-sided perihilar pneumonitis No alveolar pneumonia Reported By:
[2019-07-15] MEDS: DUONEB 0.5 MG/3 MG NEB SCH (20:16)
[2019-07-16] MEDS: K-RIDER 10 MEQ/NS 100 ML 10 MEQ/100 ML BAG IV PRN ×2 (00:12→01:13)
[2019-07-16] MEDS ORDERED: NS 1/2 1000 ML IV 1,000 ML IV ONE ×2 (04:32→23:27)
[2019-07-16] MEDS: NS 1/2 1000 ML IV 1,000 ML IV SCH ×2 (05:28→20:13)
[2019-07-16] MEDS: FORTAZ or TAZICEF VIAL INJ 1 G in NS 100 ML IV + SPIKE MINIBAG* 100 ML IV SCH ×3 (05:29→21:03)
[2019-07-16 06:07] LABS: BASOPHILS % (AUTO) 0.1 % (0.2-1.0); EOSINOPHILS # (AUTO) 0.1 x10^3/uL (0.0-0.2); EOSINOPHILS % (AUTO) 0.5 % (0.9-2.9); HEMATOCRIT 39.7 % (36.0-47.0); HEMOGLOBIN 12.9 g/dL (12.0-16.0); LYMPHOCYTES # (AUTO) 0.3 X10^3/uL (1.3-2.9); LYMPHOCYTES % (AUTO) 2.3 % (21.0-51.0); MEAN CORPUSCULAR HGB CONC 32.6 g/dL (33.0-35.0); MEAN CORPUSCULAR VOLUME 95.2 fL (80.0-100.0); MEAN PLATELET VOLUME 8.9 fL (7.4-11.0); MONOCYTES # (AUTO) 0.7 x10^3/uL (0.3-0.8); MONOCYTES % (AUTO) 5.3 % (0.0-13.0); NEUTROPHILS # (AUTO) 11.7 x10^3/uL (2.2-4.8); NEUTROPHILS % (AUTO) 91.8 % (42.0-75.0); PLATELET COUNT 246 X10^3/uL (150.0-450.0); RED BLOOD COUNT 4.17 X10^6/uL (3.5-5.4); RED CELL DISTRIBUTION WIDTH 15.1 % (11.6-16.5); WHITE BLOOD COUNT 12.8 X10^3/uL (3.6-10.0)
[2019-07-16 06:26] LABS: ALANINE AMINOTRANSFERASE 39 Units/L (12-78); ALKALINE PHOSPHATASE 208 Units/L (46-116); ASPARTATE AMINO TRANSFERASE 26 Units/L (15-37); BLOOD UREA NITROGEN 30 mg/dL (7-18); CALCIUM 9.9 mg/dL (8.5-10.1); CARBON DIOXIDE 26.1 mmol/L (21-32); CHLORIDE 114 mmol/L (98-107); COR CA(FOR HYPOALB) 11.5 mg/dL (8.5-10.1); COR NA(FOR HYPERGLY) 150 mmol/L (136-145); CREATININE 0.88 mg/dL (0.55-1.02); SODIUM 149 mmol/L (136-145); TOTAL PROTEIN 6.2 g/dL (6.4-8.2); eGFR NON BLACK RACES > 60 (>60)
[2019-07-16 06:51] LABS: BAND NEUTROPHILS % 5 % (0-10); PLATELET MORPHOLOGY COMMENT NORMAL (NORMAL)
[2019-07-16] MEDS: DUONEB 0.5 MG/3 MG NEB SCH ×4 (08:18→20:10)
[2019-07-16] MEDS: ROBITUSSIN DM PO SCH ×5 (08:39→21:22)
--- NOTE | 2019-07-16 11:15 | CT ---
HISTORY: Fever, congestion Study: CT sinuses without contrast Comparison: None Technique: Axial noncontrast images with coronal and sagittal reformats. Dose reduction procedures were used with mA/kv adjusted for body size. Findings: The frontal, right ethmoid, and bilateral maxillary sinuses are clear. Mucosal inflammatory changes are present in several anterior ethmoid air cells on the left and in the left sphenoid sinus. There are no air-fluid levels to suggest acute sinusitis. The middle ear spaces and mastoid air cells are clear. The ostiomeatal complexes are patent. IMPRESSION: Mild mucosal inflammatory changes in several left anterior ethmoid air cells and the left sphenoid sinus. The remainder the paranasal sinuses are clear. Reported By:
[2019-07-17] MEDS: FORTAZ or TAZICEF VIAL INJ 1 G in NS 100 ML IV + SPIKE MINIBAG* 100 ML IV SCH ×3 (05:09→21:46)
[2019-07-17 05:52] LABS: BASOPHILS % (AUTO) 0.2 % (0.2-1.0); EOSINOPHILS # (AUTO) 0.9 x10^3/uL (0.0-0.2); HEMATOCRIT 34.5 % (36.0-47.0); HEMOGLOBIN 11.5 g/dL (12.0-16.0); LYMPHOCYTES # (AUTO) 0.2 X10^3/uL (1.3-2.9); LYMPHOCYTES % (AUTO) 1.7 % (21.0-51.0); MEAN CORPUSCULAR HGB CONC 33.3 g/dL (33.0-35.0); MEAN CORPUSCULAR VOLUME 93.2 fL (80.0-100.0); MEAN PLATELET VOLUME 8.1 fL (7.4-11.0); MONOCYTES # (AUTO) 0.7 x10^3/uL (0.3-0.8); MONOCYTES % (AUTO) 6.6 % (0.0-13.0); NEUTROPHILS # (AUTO) 8.5 x10^3/uL (2.2-4.8); NEUTROPHILS % (AUTO) 82.5 % (42.0-75.0); PLATELET COUNT 202 X10^3/uL (150.0-450.0); RED BLOOD COUNT 3.71 X10^6/uL (3.5-5.4); RED CELL DISTRIBUTION WIDTH 14.6 % (11.6-16.5); WHITE BLOOD COUNT 10.3 X10^3/uL (3.6-10.0)
[2019-07-17 06:05] LABS: ALANINE AMINOTRANSFERASE 36 Units/L (12-78); ALBUMIN 1.9 g/dL (3.4-5.0); ALKALINE PHOSPHATASE 173 Units/L (46-116); ASPARTATE AMINO TRANSFERASE 23 Units/L (15-37); BLOOD UREA NITROGEN 19 mg/dL (7-18); CARBON DIOXIDE 25.8 mmol/L (21-32); CHLORIDE 107 mmol/L (98-107); COR CA(FOR HYPOALB) 10.7 mg/dL (8.5-10.1); SODIUM 140 mmol/L (136-145); TOTAL PROTEIN 5.6 g/dL (6.4-8.2); eGFR NON BLACK RACES > 60 (>60)
[2019-07-17] MEDS: K-RIDER 10 MEQ/NS 100 ML 10 MEQ/100 ML BAG IV PRN ×2 (06:15→09:30)
[2019-07-17] MEDS: DUONEB 0.5 MG/3 MG NEB SCH ×4 (08:38→20:24)
[2019-07-17] MEDS: NS 1/2 1000 ML IV 1,000 ML IV SCH ×2 (09:29→23:32)
[2019-07-17] MEDS: ROBITUSSIN DM PO SCH ×4 (09:29→21:45)
[2019-07-17] MEDS ORDERED: NS 1/2 1000 ML IV 1,000 ML IV ONE (09:35)
[2019-07-17] MEDS ORDERED: PATIENT'S HOME MEDICATION (Biotin [Biotin] 1 MG) PO SCH (11:15)
[2019-07-17] MEDS: COLACE CAP 100 MG PO SCH ×2 (11:53→21:44)
[2019-07-17] MEDS: ALPHAGAN 0.2% OPHTH SOLN OP SCH ×2 (12:05→21:44)
[2019-07-17] MEDS: OSCAL+D or CALTRATE+D PO SCH ×2 (12:05→21:46)
[2019-07-17] MEDS: COSOPT OPTH OP SCH ×2 (12:06→21:44)
[2019-07-17] MEDS: DIAMOX PO SCH ×2 (12:06→21:46)
[2019-07-17] MEDS: TIMOPTIC 0.5% EYE DROPS OP SCH ×2 (12:07→21:45)
[2019-07-17] MEDS: PAXIL PO SCH (12:07)
[2019-07-17] MEDS: MEGACE PO SCH ×2 (12:07→21:46)
[2019-07-17] MEDS: MIRALAX POWDER (1 DOSE 17 G) PO SCH (12:07)
[2019-07-17] MEDS ORDERED: DEPAKOTE D.R. TAB PO ONE (19:20)
[2019-07-17] MEDS: PEPCID TAB 20 MG PO SCH (21:44)
[2019-07-17] MEDS: DEPAKOTE D.R. TAB PO SCH (21:45)
[2019-07-17] MEDS: ZyrTEC TAB 10 MG PO SCH (21:45)
[2019-07-18] MEDS ORDERED: NS 1/2 1000 ML IV 1,000 ML IV ONE ×2 (05:05→22:56)
[2019-07-18] MEDS: FORTAZ or TAZICEF VIAL INJ 1 G in NS 100 ML IV + SPIKE MINIBAG* 100 ML IV SCH ×3 (05:08→21:19)
[2019-07-18 05:38] LABS: BASOPHILS % (AUTO) 0.4 % (0.2-1.0); EOSINOPHILS # (AUTO) 0.8 x10^3/uL (0.0-0.2); EOSINOPHILS % (AUTO) 9.1 % (0.9-2.9); HEMATOCRIT 37.6 % (36.0-47.0); HEMOGLOBIN 12.4 g/dL (12.0-16.0); LYMPHOCYTES # (AUTO) 0.2 X10^3/uL (1.3-2.9); LYMPHOCYTES % (AUTO) 2.6 % (21.0-51.0); MEAN CORPUSCULAR HEMOGLOBIN 30.8 pg (27.0-34.0); MEAN CORPUSCULAR HGB CONC 33.1 g/dL (33.0-35.0); MEAN CORPUSCULAR VOLUME 93.1 fL (80.0-100.0); MEAN PLATELET VOLUME 8.4 fL (7.4-11.0); MONOCYTES # (AUTO) 0.7 x10^3/uL (0.3-0.8); NEUTROPHILS # (AUTO) 6.9 x10^3/uL (2.2-4.8); NEUTROPHILS % (AUTO) 79.9 % (42.0-75.0); PLATELET COUNT 226 X10^3/uL (150.0-450.0); RED BLOOD COUNT 4.04 X10^6/uL (3.5-5.4); RED CELL DISTRIBUTION WIDTH 14.2 % (11.6-16.5); WHITE BLOOD COUNT 8.7 X10^3/uL (3.6-10.0)
[2019-07-18 05:51] LABS: ALANINE AMINOTRANSFERASE 33 Units/L (12-78); ALKALINE PHOSPHATASE 179 Units/L (46-116); ASPARTATE AMINO TRANSFERASE 24 Units/L (15-37); BLOOD UREA NITROGEN 11 mg/dL (7-18); CALCIUM 9.1 mg/dL (8.5-10.1); CARBON DIOXIDE 28.1 mmol/L (21-32); CHLORIDE 104 mmol/L (98-107); COR CA(FOR HYPOALB) 10.7 mg/dL (8.5-10.1); CREATININE 0.59 mg/dL (0.55-1.02); SODIUM 139 mmol/L (136-145); TOTAL PROTEIN 5.8 g/dL (6.4-8.2); eGFR NON BLACK RACES > 60 (>60)
--- NOTE | 2019-07-18 06:01 | RAD ---
HISTORY: Follow-up pneumonia Study: Chest AP portable Comparison: 07/15/2019 Findings: Patient is rotated to the left. The heart is within normal limits in size. The yayo are normal. The lungs are mildly hyperinflated and free of acute alveolar infiltrates. Interstitial lung changes are again identified not significantly changed in degree or distribution from the prior examination. There is a focus of subsegmental atelectasis in the right lung base. No pleural effusions are identified. The bony thorax is unremarkable. IMPRESSION: No change previously described interstitial lung changes slightly more prominent on the right than the left Interval development subsegmental atelectasis right lung base Hyperinflation Reported By:
[2019-07-18] MEDS: K-RIDER 10 MEQ/NS 100 ML 10 MEQ/100 ML BAG IV PRN (06:35)
[2019-07-18] MEDS: ALPHAGAN 0.2% OPHTH SOLN OP SCH ×2 (08:37→20:36)
[2019-07-18] MEDS: COSOPT OPTH OP SCH ×2 (08:37→20:36)
[2019-07-18] MEDS: PEPCID TAB 20 MG PO SCH ×2 (08:37→20:20)
[2019-07-18] MEDS: TAB-A-VITE PO SCH (08:38)
[2019-07-18] MEDS: OSCAL+D or CALTRATE+D PO SCH ×2 (08:38→20:21)
[2019-07-18] MEDS: PAXIL PO SCH (08:38)
[2019-07-18] MEDS: TIMOPTIC 0.5% EYE DROPS OP SCH ×2 (08:39→20:36)
[2019-07-18] MEDS: MEGACE PO SCH ×2 (08:39→20:21)
[2019-07-18] MEDS: ROBITUSSIN DM PO SCH ×4 (08:39→20:21)
[2019-07-18] MEDS: DIAMOX PO SCH ×2 (08:39→20:21)
[2019-07-18] MEDS: DUONEB 0.5 MG/3 MG NEB SCH ×4 (08:58→20:55)
[2019-07-18] MEDS ORDERED: [UNRECOGNIZED DRUG - OTHER] PO SCH (09:00)
[2019-07-18] MEDS ORDERED: PHARMACY CONSULT - DOSE _____ XX SCH (09:00)
[2019-07-18] MEDS: MIRALAX POWDER (1 DOSE 17 G) PO SCH (10:25)
--- NOTE | 2019-07-18 10:33 | DR.H&P ---
H&P - History & Physical for Day of: H&P Date: 07/16/19 - Chief Complaint Chief Complaint: COUGH, CONGESTION, DECREASED APPETITE - History of Present Illness History of Present Illness: IS A 84 YEAR OLD PATIENT OF OURS. SHE IS A RESIDENT OF [facility] [place]. SHE PRESENTED TO THE HOSPITAL A DIRECT ADMISSION DUE TO COMPLAINTS OF COUGH, CONGESTION, AND DECREASED APPETITE X 2 WEEKS. PATIENT HAS BEEN RECEIVING CIPRO PO AND DOXYCYCLINE PO, HOWEVER, SYMPTOMS HAVE PERSISTED WITHOUT IMPROVEMENT. ON ARRIVAL TO THE HOSPITAL, VITALS WERE: 98.4-84-18-100%-169/87. LABS WERE OBTAINED. ABNORMAL LAB VALUES INCLUDE THE FOLLOWING: WBC 11.0, SODIUM 152, POTASSIUM 3.4, CHLORIDE 114, BUN 38, GLUCOSE 165, CALCIUM 10.8, ALK PHOS 243, ALBUMIN 2.3, GLOBULIN 4.8. INFLUENZA NEGATIVE. BLOOD CULTURES OBTAINED. A CHEST XRAY WAS OBTAINED AND REVEALED: Interstitial lung changes bilaterally somewhat more prominent on the right than the left possibly indicative of right-sided perihilar pneumonitis. No alveolar pneumonia. SHE WAS STARTED ON THE PNEUMONIA PROTOCOL WITH IV FORTAZ, RESPIRATORY TREATMENTS, AND SUPPLEMENTAL OXYGEN. OTHERWISE, WE PLAN TO FOLLOW UP WITH AM LABS AND CHEST XRAY AND CONTINUE TO MONITOR. - Past Medical History Past Medical History: Hypertension, Alzheimers, Dementia, Depression, Anemia, GERD, Arthritis, CHF Additional Medical History: Osteoporosis, LBP, GLAUCOMA - Past Surgical History Surgical History: Cholecystectomy, Hysterectomy Additional Surgical History: ORIF (R) Ankle - Social History Does patient currently use any type of tobacco product: No Have you used tobacco products in the last 12 months: No Type of Tobacco Use: None Does any household member use tobacco: No Alcohol Use: None Drug Use: None Prescription drug monitoring program results: PDMP was not reviewed - Medications Home Medications: ciprofloxacin Allergy (Unknown, Verified 07/15/19 15:58) codeine Allergy (Unknown, Verified 07/15/19 15:58) Penicillins Allergy (Unknown, Verified 07/15/19 15:58) CONTINUE taking the following medications cefdinir 300 mg PO BID 07/15/19 [History] cetirizine [Zyrtec] 10 mg PO HS 07/15/19 [History] dextromethorphan-guaifenesin [Robitussin Cough-Chest Nithin DM] 15 ml PO QID 07/15/19 [History] doxycycline hyclate [Vibramycin] 100 mg PO BID 07/15/19 [History] megestrol 20 mg PO BID 07/15/19 [History] - Review of Systems Constitutional: Fever, Weakness Eyes: No Symptoms Reported ENT: No Symptoms Reported Respiratory: Cough, Shortness of Breath, Wheezing Cardiovascular: No Symptoms Reported Gastrointestinal: No Symptoms Reported Genitourinary: No Symptoms Reported Musculoskeletal: No Symptoms Reported Skin: No Symptoms Reported Neurological: Weakness - Physical Exam Vital Signs: Temperature 99.7 F Pulse Rate [Right Brachial] 84 Pulse Rate 81 Respiratory Rate 20 Blood Pressure [Right Arm] 176/95 Blood Pressure [Left Arm] 124/59 Blood Pressure 124/59 O2 Sat by Pulse Oximetry 93 Oriented: Not Oriented Eyes: Normal Ear: Normal Nose: Normal Respiratory: Wheezes Throughout Cardiovascular: Normal. negative: S3, S4, Murmur : Normal Auscultation: Bowel Sounds: Normal Palpation: Normal Tenderness: Normal Skin: Normal Musculoskeletal: Normal Psychiatric: Normal Mood Description: Calm Affect: Normal Speech Pattern: Inappropriate - Assessment/Plan (1) Pneumonia Qualifiers: Pneumonia type: due to unspecified organism Laterality: right Lung location: lower lobe of lung Qualified Code(s): J18.1 - Lobar pneumonia, unspecified organism Status: Acute Plan: PNEUMONIA PROTOCOL, IV FORTAZ, RESPIRATORY TX, SUPPLEMENTAL OXYGEN, CONTINUE TO MONITOR - Allergies Allergies/Adverse Reactions: Allergies Allergy/AdvReac Type Severity Reaction Status Date / Time ciprofloxacin Allergy Unknown Verified 07/15/19 15:58 codeine Allergy Unknown Verified 07/15/19 15:58 Penicillins Allergy Unknown Verified 07/15/19 15:58
[2019-07-18] MEDS: LOVENOX INJ 40 MG SYR SC SCH (11:27)
[2019-07-18] MEDS: NS 1/2 1000 ML IV 1,000 ML IV SCH ×2 (13:41→23:03)
[2019-07-18] MEDS: DEPAKOTE D.R. TAB PO SCH (20:20)
[2019-07-18] MEDS: COLACE CAP 100 MG PO SCH (20:21)
[2019-07-18] MEDS: ZyrTEC TAB 10 MG PO SCH (20:21)
[2019-07-19] MEDS: NS 1/2 1000 ML IV 1,000 ML IV SCH ×2 (04:12→20:34)
[2019-07-19] MEDS: FORTAZ or TAZICEF VIAL INJ 1 G in NS 100 ML IV + SPIKE MINIBAG* 100 ML IV SCH ×3 (05:04→21:00)
[2019-07-19 05:46] LABS: BASOPHILS % (AUTO) 0.3 % (0.2-1.0); EOSINOPHILS # (AUTO) 0.5 x10^3/uL (0.0-0.2); EOSINOPHILS % (AUTO) 7.2 % (0.9-2.9); HEMATOCRIT 38.2 % (36.0-47.0); HEMOGLOBIN 12.4 g/dL (12.0-16.0); LYMPHOCYTES # (AUTO) 0.3 X10^3/uL (1.3-2.9); LYMPHOCYTES % (AUTO) 3.6 % (21.0-51.0); MEAN CORPUSCULAR HEMOGLOBIN 30.7 pg (27.0-34.0); MEAN CORPUSCULAR HGB CONC 32.5 g/dL (33.0-35.0); MEAN CORPUSCULAR VOLUME 94.5 fL (80.0-100.0); MEAN PLATELET VOLUME 8.7 fL (7.4-11.0); MONOCYTES # (AUTO) 0.6 x10^3/uL (0.3-0.8); MONOCYTES % (AUTO) 8.8 % (0.0-13.0); NEUTROPHILS # (AUTO) 5.7 x10^3/uL (2.2-4.8); NEUTROPHILS % (AUTO) 80.1 % (42.0-75.0); PLATELET COUNT 223 X10^3/uL (150.0-450.0); RED BLOOD COUNT 4.04 X10^6/uL (3.5-5.4); RED CELL DISTRIBUTION WIDTH 14.2 % (11.6-16.5); WHITE BLOOD COUNT 7.1 X10^3/uL (3.6-10.0)
[2019-07-19 06:00] LABS: ALANINE AMINOTRANSFERASE 29 Units/L (12-78); ALBUMIN 2.1 g/dL (3.4-5.0); ALKALINE PHOSPHATASE 173 Units/L (46-116); ASPARTATE AMINO TRANSFERASE 23 Units/L (15-37); BLOOD UREA NITROGEN 10 mg/dL (7-18); CALCIUM 9.7 mg/dL (8.5-10.1); CARBON DIOXIDE 30.2 mmol/L (21-32); CHLORIDE 106 mmol/L (98-107); COR CA(FOR HYPOALB) 11.2 mg/dL (8.5-10.1); CREATININE 0.64 mg/dL (0.55-1.02); SODIUM 141 mmol/L (136-145); TOTAL PROTEIN 6.1 g/dL (6.4-8.2); eGFR NON BLACK RACES > 60 (>60)
--- NOTE | 2019-07-19 06:14 | RAD ---
HISTORY: Shortness of breath Study: Chest AP portable Comparison: 07/18/2019 Findings: The heart is within normal limits in size. The yayo are normal. The lungs remain mildly hyperinflated. Interstitial lung changes remain unchanged. There is now some alveolar infiltrate in the right lung base where there has been some improvement in the previously noted subsegmental atelectasis. No pleural effusions are identified. The bony thorax is unremarkable. IMPRESSION: Improvement right basilar subsegmental atelectasis but now with a right basilar lung infiltrate present Stable interstitial lung changes Hyperinflation Reported By:
[2019-07-19] MEDS: DUONEB 0.5 MG/3 MG NEB SCH ×4 (08:43→20:21)
[2019-07-19] MEDS: ROBITUSSIN DM PO SCH ×4 (09:53→20:36)
[2019-07-19] MEDS: DIAMOX PO SCH ×2 (09:53→20:35)
[2019-07-19] MEDS: PAXIL PO SCH (09:53)
[2019-07-19] MEDS: TAB-A-VITE PO SCH (09:53)
[2019-07-19] MEDS: LOVENOX INJ 40 MG SYR SC SCH (09:53)
[2019-07-19] MEDS: MEGACE PO SCH ×2 (09:54→20:35)
[2019-07-19] MEDS: OSCAL+D or CALTRATE+D PO SCH ×2 (09:55→20:56)
[2019-07-19] MEDS: ALPHAGAN 0.2% OPHTH SOLN OP SCH ×2 (09:55→20:56)
[2019-07-19] MEDS: COSOPT OPTH OP SCH ×2 (09:55→20:56)
[2019-07-19] MEDS: MIRALAX POWDER (1 DOSE 17 G) PO SCH (09:55)
[2019-07-19] MEDS: PEPCID TAB 20 MG PO SCH ×2 (09:56→20:35)
[2019-07-19] MEDS: TIMOPTIC 0.5% EYE DROPS OP SCH ×2 (09:56→20:56)
--- NOTE | 2019-07-19 10:18 | PCM.PROG ---
Progress Note - Progress Note for Day of Date of Exam: 07/18/19 - Subjective Subjective: WAS ADMITTED FOR PNEUMONIA AND HYPERNATREMIA. TODAY, SHE IS LYING IN BED WITH EYES CLOSED ON MORNING ROUNDS. SHE AWAKENS TO VERBAL STIMULI, BUT DOES NOT RESPOND VERBALLY THIS MORNING. SHE CONTINUES WITH COUGH THIS MORNING. ON EXAMINATION, HEART IS REGULAR IN RATE AND RHYTHM. BILATERAL LUNGS ARE NOTED WITH SCATTERED WHEEZING AND RHONCHI THROUGHOUT. ABDOMEN IS ROUND, SOFT, AND NON-TENDER WITH NORMAL BOWEL SOUNDS NOTED IN ALL QUADRANTS. HER VITALS THIS MORNING ARE: 99.7-84-20-95%-176/95. LABS WERE OBTAINED. ABNORMAL LAB VALUES INCLUDE THE FOLLOWING: GLUCOSE 105, ALK PHOS 179, TOTAL PROTEIN 5.8, ALBUMIN 2.0. BLOOD CULTURES ARE PENDING. A CHEST XRAY WAS OBTAINED TODAY AND REVEALED: No change previously described interstitial lung changes slightly more prominent on the right than the left. Interval development subsegmental atelectasis right lung base. Hyperinflation. SHE IS CURRENTLY RECEIVING IV FORTAZ, RESPIRATORY TREATMENTS, SUPPLEMENTAL OXYGEN, AND HOME MEDICATIONS WERE RESUMED. WE WILL CONTINUE WITH CURRENT PLAN OF CARE TODAY. OTHERWISE, WE WILL FOLLOW UP WITH AM LABS AND CONTINUE TO MONITOR. - Past Medical Family Social History Past Med/Fam/Surg Hx: No changes since H&P Allergies: Allergies ciprofloxacin Allergy (Unknown, Verified 07/15/19 15:58) codeine Allergy (Unknown, Verified 07/15/19 15:58) Penicillins Allergy (Unknown, Verified 07/15/19 15:58) - Review of Systems ROS: No change since H&P - Vital Signs and I&O's Vital Signs: Temperature 98.3 F Pulse Rate [Right Brachial] 76 Pulse Rate 76 Respiratory Rate 20 Blood Pressure [Right Arm] 190/100 Blood Pressure [Left Arm] 124/59 Blood Pressure 124/59 O2 Sat by Pulse Oximetry 94 Intake and Output: Intake & Output 07/16/19 07/17/19 07/18/19 07/19/19 11:59 11:59 11:59 11:59 Intake Total 820 / 820 3812 / 3812 2720 / 2720 2117 Balance 820 / 820 3812 / 3812 2720 / 2720 2117 - Physical Exam Oriented: Not Oriented Eyes: Normal Ear: Normal Nose: Normal Throat: Normal Respiratory: Generalized, Wheezes, Rhonchi Cardiovascular: Normal. negative: S3, S4, Murmur : Normal Auscultation: Bowel Sounds: Normal Palpation: Normal Tenderness: Normal Skin: Normal Musculoskeletal: Normal Psychiatric: Normal Mood Description: Calm Affect: Normal Speech Pattern: Inappropriate - Laboratory and Diagnostics Result Diagrams: 07/19/19 05:19 07/19/19 05:19 Labs: 07/15/19 15:53 Blood Blood Culture - Preliminary 07/15/19 15:49 Blood Blood Culture - Preliminary Laboratory WBC 7.1 X10^3/uL (3.6-10.0) 07/19/19 05:19 RBC 4.04 X10^6/uL (3.5-5.4) 07/19/19 05:19 Hgb 12.4 g/dL (12.0-16.0) 07/19/19 05:19 Hct 38.2 % (36.0-47.0) 07/19/19 05:19 MCV 94.5 fL (80.0-100.0) 07/19/19 05:19 MCH 30.7 pg (27.0-34.0) 07/19/19 05:19 MCHC 32.5 g/dL (33.0-35.0) L 07/19/19 05:19 RDW 14.2 % (11.6-16.5) 07/19/19 05:19 Plt Count 223 X10^3/uL (150.0-450.0) 07/19/19 05:19 Plt Count Comment Adequate (ADEQUATE) 07/16/19 05:33 MPV 8.7 fL (7.4-11.0) 07/19/19 05:19 Neut % (Auto) 80.1 % (42.0-75.0) H 07/19/19 05:19 Lymph % (Auto) 3.6 % (21.0-51.0) L 07/19/19 05:19 [place] % (Auto) 8.8 % (0.0-13.0) 07/19/19 05:19 Eos % (Auto) 7.2 % (0.9-2.9) H 07/19/19 05:19 Baso % (Auto) 0.3 % (0.2-1.0) 07/19/19 05:19 Neut # (Auto) 5.7 x10^3/uL (2.2-4.8) H 07/19/19 05:19 Lymph # (Auto) 0.3 X10^3/uL (1.3-2.9) L 07/19/19 05:19 [place] # (Auto) 0.6 x10^3/uL (0.3-0.8) 07/19/19 05:19 Eos # (Auto) 0.5 x10^3/uL (0.0-0.2) H 07/19/19 05:19 Baso # (Auto) 0.0 X10^3/uL (0.0-0.1) 07/19/19 05:19 Absolute Nucleated RBC 0.1 /100WBC 07/19/19 05:19 Total Counted 100 07/16/19 05:33 Neutrophils % (Manual) 89 % (39-76) H 07/16/19 05:33 Band Neutrophils % 5 % (0-10) 07/16/19 05:33 Lymphocytes % (Manual) 2 % (13-43) L 07/16/19 05:33 Monocytes % (Manual) 4 % (4-9) 07/16/19 05:33 Plt Morphology Comment Normal (NORMAL) 07/16/19 05:33 RBC Morphology Normal (NORMAL) 07/16/19 05:33 Sodium 141 mmol/L (136-145) 07/19/19 05:19 Corrected Sodium TNP 07/19/19 05:19 Potassium 3.7 mmol/L (3.5-5.1) 07/19/19 05:19 Chloride 106 mmol/L (98-107) 07/19/19 05:19 Carbon Dioxide 30.2 mmol/L (21-32) 07/19/19 05:19 BUN 10 mg/dL (7-18) 07/19/19 05:19 Creatinine 0.64 mg/dL (0.55-1.02) 07/19/19 05:19 Est GFR (MDRD) Af Amer > 60 (>60) 07/19/19 05:19 Est GFR (MDRD) Non-Af > 60 (>60) 07/19/19 05:19 Glucose 93 mg/dL (65-99) 07/19/19 05:19 Calcium 9.7 mg/dL (8.5-10.1) 07/19/19 05:19 Corrected Calcium 11.2 mg/dL (8.5-10.1) H 07/19/19 05:19 Magnesium 2.3 mg/dL (1.7-2.9) 07/15/19 15:49 Total Bilirubin 0.30 mg/dL (0.2-1.0) 07/19/19 05:19 AST 23 Units/L (15-37) 07/19/19 05:19 ALT 29 Units/L (12-78) 07/19/19 05:19 Alkaline Phosphatase 173 Units/L (46-116) H 07/19/19 05:19 Total Protein 6.1 g/dL (6.4-8.2) L 07/19/19 05:19 Albumin 2.1 g/dL (3.4-5.0) L 07/19/19 05:19 Globulin 4.0 g/dL (2.5-4.5) 07/19/19 05:19 Albumin/Globulin Ratio 0.5 Ratio (1.1-2.1) L 07/19/19 05:19 Influenza Type A (PCR) Negative (NEGATIVE) 07/15/19 15:20 Influenza Type B (PCR) Negative (NEGATIVE) 07/15/19 15:20 - Plan (1) Pneumonia Status: Acute Qualifiers: Pneumonia type: due to unspecified organism Laterality: right Lung location: lower lobe of lung Qualified Code(s): J18.1 - Lobar pneumonia, unspecified organism Plan: PNEUMONIA PROTOCOL, IV FORTAZ, RESPIRATORY TX, SUPPLEMENTAL OXYGEN, CONTINUE TO MONITOR
[2019-07-19] MEDS ORDERED: CATAPRES-TTS-1 TD SCH (11:00)
--- NOTE | 2019-07-19 12:03 | PCM.PROG ---
Progress Note - Progress Note for Day of Date of Exam: 07/19/19 - Subjective Subjective: WAS ADMITTED FOR PNEUMONIA AND HYPERNATREMIA. TODAY, SHE IS ALERT, LYING IN BED ON MORNING ROUNDS. SHE RESPONDS VERBALLY, BUT IS DISORIENTED. SHE CONTINUES WITH COUGH THIS MORNING. ON EXAMINATION, HEART IS REGULAR IN RATE AND RHYTHM. BILATERAL LUNGS ARE NOTED WITH SCATTERED WHEEZING AND RHONCHI THROUGHOUT. ABDOMEN IS ROUND, SOFT, AND NON-TENDER WITH NORMAL BOWEL SOUNDS NOTED IN ALL QUADRANTS. HER VITALS THIS MORNING ARE: 98.3-76-20-94%-190/100. LABS WERE OBTAINED. ABNORMAL LAB VALUES INCLUDE THE FOLLOWING: ALK PHOS 173, TOTAL PROTEIN 6.1, ALBUMIN 2.1. BLOOD CULTURES ARE PENDING. A CHEST XRAY WAS OBTAINED TODAY AND REVEALED: Improvement right basilar subsegmental atelectasis but now with a right basilar lung infiltrate present. Stable interstitial lung changes. Hyperinflation. SHE IS CURRENTLY RECEIVING IV FORTAZ, RESPIRATORY TREATMENTS, SUPPLEMENTAL OXYGEN, AND HOME MEDICATIONS WERE RESUMED. WE WILL CONTINUE WITH CURRENT PLAN OF CARE TODAY AND ADD MUCOMYST QID TO NEB TX, AND A CATAPRES PATCH FOR HYPERTENSION. OTHERWISE, WE WILL FOLLOW UP WITH AM LABS AND CONTINUE TO MONITOR. - Past Medical Family Social History Past Med/Fam/Surg Hx: No changes since H&P Allergies: Allergies ciprofloxacin Allergy (Unknown, Verified 07/15/19 15:58) codeine Allergy (Unknown, Verified 07/15/19 15:58) Penicillins Allergy (Unknown, Verified 07/15/19 15:58) - Review of Systems ROS: No change since H&P - Vital Signs and I&O's Vital Signs: Temperature 98.3 F Pulse Rate [Right Brachial] 76 Pulse Rate 76 Respiratory Rate 20 Blood Pressure [Right Arm] 190/100 Blood Pressure [Left Arm] 124/59 Blood Pressure 124/59 O2 Sat by Pulse Oximetry 94 Intake and Output: Intake & Output 07/17/19 07/18/19 07/19/19 07/20/19 11:59 11:59 11:59 11:59 Intake Total 3812 / 3812 2720 / 2720 2117 Balance 3812 / 3812 2720 / 2720 2117 - Physical Exam Oriented: Not Oriented Eyes: Normal Ear: Normal Nose: Normal Throat: Normal Respiratory: Generalized, Wheezes, Rhonchi Cardiovascular: Normal. negative: S3, S4, Murmur : Normal Auscultation: Bowel Sounds: Normal Palpation: Normal Tenderness: Normal Skin: Normal Musculoskeletal: Normal Psychiatric: Normal Mood Description: Calm Affect: Normal Speech Pattern: Inappropriate - Laboratory and Diagnostics Result Diagrams: 07/19/19 05:19 07/19/19 05:19 Labs: 07/15/19 15:53 Blood Blood Culture - Preliminary 07/15/19 15:49 Blood Blood Culture - Preliminary Laboratory WBC 7.1 X10^3/uL (3.6-10.0) 07/19/19 05:19 RBC 4.04 X10^6/uL (3.5-5.4) 07/19/19 05:19 Hgb 12.4 g/dL (12.0-16.0) 07/19/19 05:19 Hct 38.2 % (36.0-47.0) 07/19/19 05:19 MCV 94.5 fL (80.0-100.0) 07/19/19 05:19 MCH 30.7 pg (27.0-34.0) 07/19/19 05:19 MCHC 32.5 g/dL (33.0-35.0) L 07/19/19 05:19 RDW 14.2 % (11.6-16.5) 07/19/19 05:19 Plt Count 223 X10^3/uL (150.0-450.0) 07/19/19 05:19 Plt Count Comment Adequate (ADEQUATE) 07/16/19 05:33 MPV 8.7 fL (7.4-11.0) 07/19/19 05:19 Neut % (Auto) 80.1 % (42.0-75.0) H 07/19/19 05:19 Lymph % (Auto) 3.6 % (21.0-51.0) L 07/19/19 05:19 [place] % (Auto) 8.8 % (0.0-13.0) 07/19/19 05:19 Eos % (Auto) 7.2 % (0.9-2.9) H 07/19/19 05:19 Baso % (Auto) 0.3 % (0.2-1.0) 09/24/19 05:19 Neut # (Auto) 5.7 x10^3/uL (2.2-4.8) H 07/19/19 05:19 Lymph # (Auto) 0.3 X10^3/uL (1.3-2.9) L 07/19/19 05:19 [place] # (Auto) 0.6 x10^3/uL (0.3-0.8) 07/19/19 05:19 Eos # (Auto) 0.5 x10^3/uL (0.0-0.2) H 07/19/19 05:19 Baso # (Auto) 0.0 X10^3/uL (0.0-0.1) 07/19/19 05:19 Absolute Nucleated RBC 0.1 /100WBC 07/19/19 05:19 Total Counted 100 07/16/19 05:33 Neutrophils % (Manual) 89 % (39-76) H 07/16/19 05:33 Band Neutrophils % 5 % (0-10) 07/16/19 05:33 Lymphocytes % (Manual) 2 % (13-43) L 07/16/19 05:33 Monocytes % (Manual) 4 % (4-9) 07/16/19 05:33 Plt Morphology Comment Normal (NORMAL) 07/16/19 05:33 RBC Morphology Normal (NORMAL) 07/16/19 05:33 Sodium 141 mmol/L (136-145) 07/19/19 05:19 Corrected Sodium TNP 07/19/19 05:19 Potassium 3.7 mmol/L (3.5-5.1) 07/19/19 05:19 Chloride 106 mmol/L (98-107) 07/19/19 05:19 Carbon Dioxide 30.2 mmol/L (21-32) 07/19/19 05:19 BUN 10 mg/dL (7-18) 07/19/19 05:19 Creatinine 0.64 mg/dL (0.55-1.02) 07/19/19 05:19 Est GFR (MDRD) Af Amer > 60 (>60) 07/19/19 05:19 Est GFR (MDRD) Non-Af > 60 (>60) 07/19/19 05:19 Glucose 93 mg/dL (65-99) 07/19/19 05:19 Calcium 9.7 mg/dL (8.5-10.1) 07/19/19 05:19 Corrected Calcium 11.2 mg/dL (8.5-10.1) H 07/19/19 05:19 Magnesium 2.3 mg/dL (1.7-2.9) 07/15/19 15:49 Total Bilirubin 0.30 mg/dL (0.2-1.0) 07/19/19 05:19 AST 23 Units/L (15-37) 07/19/19 05:19 ALT 29 Units/L (12-78) 07/19/19 05:19 Alkaline Phosphatase 173 Units/L (46-116) H 07/19/19 05:19 Total Protein 6.1 g/dL (6.4-8.2) L 07/19/19 05:19 Albumin 2.1 g/dL (3.4-5.0) L 07/19/19 05:19 Globulin 4.0 g/dL (2.5-4.5) 07/19/19 05:19 Albumin/Globulin Ratio 0.5 Ratio (1.1-2.1) L 07/19/19 05:19 Influenza Type A (PCR) Negative (NEGATIVE) 07/15/19 15:20 Influenza Type B (PCR) Negative (NEGATIVE) 07/15/19 15:20 - Plan (1) Pneumonia Status: Acute Qualifiers: Pneumonia type: due to unspecified organism Laterality: right Lung location: lower lobe of lung Qualified Code(s): J18.1 - Lobar pneumonia, unspecified organism Plan: PNEUMONIA PROTOCOL, IV FORTAZ, RESPIRATORY TX, SUPPLEMENTAL OXYGEN, CONTINUE TO MONITOR (2) Hypertension Status: Acute Qualifiers: Hypertension type: essential hypertension Qualified Code(s): I10 - Essential (primary) hypertension Plan: CATAPRES 0.1MG TD PATCH WEEKLY, CONTINUE TO MONITOR (3) Hypernatremia Status: Resolved
[2019-07-19] MEDS ORDERED: MUCOMYST 20% 200 MG/ML NEB SCH ×2 (13:00)
[2019-07-19] MEDS ORDERED: NS 1/2 1000 ML IV 1,000 ML IV ONE (15:26)
[2019-07-19] MEDS: MUCOMYST 20% 200 MG/ML NEB SCH ×2 (16:16→20:21)
[2019-07-19] MEDS: DEPAKOTE D.R. TAB PO SCH (20:35)
[2019-07-19] MEDS: COLACE CAP 100 MG PO SCH (20:35)
[2019-07-19] MEDS: ZyrTEC TAB 10 MG PO SCH (20:35)
[2019-07-20] MEDS ORDERED: NS 1/2 1000 ML IV 1,000 ML IV ONE (04:10)
[2019-07-20] MEDS: NS 1/2 1000 ML IV 1,000 ML IV SCH ×2 (04:24→07:38)
[2019-07-20] MEDS: FORTAZ or TAZICEF VIAL INJ 1 G in NS 100 ML IV + SPIKE MINIBAG* 100 ML IV SCH (05:02)
[2019-07-20 05:36] LABS: BASOPHILS % (AUTO) 0.3 % (0.2-1.0); EOSINOPHILS # (AUTO) 0.5 x10^3/uL (0.0-0.2); EOSINOPHILS % (AUTO) 5.8 % (0.9-2.9); HEMOGLOBIN 12.4 g/dL (12.0-16.0); LYMPHOCYTES # (AUTO) 0.2 X10^3/uL (1.3-2.9); LYMPHOCYTES % (AUTO) 2.7 % (21.0-51.0); MEAN CORPUSCULAR HEMOGLOBIN 31.4 pg (27.0-34.0); MEAN CORPUSCULAR HGB CONC 33.4 g/dL (33.0-35.0); MEAN CORPUSCULAR VOLUME 94.1 fL (80.0-100.0); MEAN PLATELET VOLUME 8.4 fL (7.4-11.0); MONOCYTES # (AUTO) 0.6 x10^3/uL (0.3-0.8); MONOCYTES % (AUTO) 7.6 % (0.0-13.0); NEUTROPHILS # (AUTO) 6.7 x10^3/uL (2.2-4.8); NEUTROPHILS % (AUTO) 83.6 % (42.0-75.0); PLATELET COUNT 224 X10^3/uL (150.0-450.0); RED BLOOD COUNT 3.93 X10^6/uL (3.5-5.4); RED CELL DISTRIBUTION WIDTH 14.3 % (11.6-16.5)
[2019-07-20 05:51] LABS: ALANINE AMINOTRANSFERASE 23 Units/L (12-78); ALBUMIN 1.9 g/dL (3.4-5.0); ALKALINE PHOSPHATASE 150 Units/L (46-116); ASPARTATE AMINO TRANSFERASE 17 Units/L (15-37); BLOOD UREA NITROGEN 9 mg/dL (7-18); CALCIUM 9.3 mg/dL (8.5-10.1); CARBON DIOXIDE 27.2 mmol/L (21-32); CHLORIDE 107 mmol/L (98-107); CREATININE 0.55 mg/dL (0.55-1.02); SODIUM 142 mmol/L (136-145); TOTAL PROTEIN 5.7 g/dL (6.4-8.2); eGFR NON BLACK RACES > 60 (>60)
[2019-07-20] MEDS: K-RIDER 10 MEQ/NS 100 ML 10 MEQ/100 ML BAG IV PRN (06:00)
--- NOTE | 2019-07-20 06:52 | RAD ---
HISTORY: Shortness of breath Study: Single view chest Comparison: 07/19/2019 Findings: Chronic hyperinflation and nonspecific interstitial changes are present. Patchy infiltrate suspected at the lung bases. Trace effusions may also be present. No pneumothorax identified. Stable cardiac and mediastinal contours. IMPRESSION: 1. Stable chest as described. Reported By:
[2019-07-20] MEDS: DUONEB 0.5 MG/3 MG NEB SCH ×2 (08:05→08:19)
[2019-07-20] MEDS: MUCOMYST 20% 200 MG/ML NEB SCH (08:19)
[2019-07-20] MEDS ORDERED: BUTT CREAM (COMPOUND) TOP PRN (09:08)
[2019-07-20] MEDS ORDERED: BUTT CREAM (COMPOUND) ONE (09:10)
[2019-07-20 09:24] VITALS: BP 151/75
== END 2019-07-20 11:30 | DRG 194 ==
LOC: MED/SURG 15:19
PROVIDERS: ADMIT Internal Medicine; ATTEND Internal Medicine
DX: K21.9 Gastro-esophageal reflux disease without esophagitis; G30.9 Alzheimer's disease, unspecified; J18.8 Other pneumonia, unspecified organism; Z66 Do not resuscitate; R26.89 Other abnormalities of gait and mobility; I10 Essential (primary) hypertension; E87.0 Hyperosmolality and hypernatremia
CPT/HCPCS: 36415; 70486; 71010; 71045; 80053; 83735; 85025; 87040; 87502; 94640; 94760; 97110; 97162; 97165; A4222; S0179; J0713; J1650; J3480; J7050; J7608; J7620